=== PATIENT | female | born 1975 | race Caucasian/White ===

== ENCOUNTER 2020-02-20 07:08 | Outpatient (CLI) | payer OTHER, SELFPAY ==
[2020-02-20 07:21] LABS: Basophils Absolute Auto 0.04 K/mm3 (0.00-0.10); Basophils Percent Auto 0.3 % (0.0-1.0); Eosinophils Absolute Auto 0.16 K/mm3 (0.02-0.50); Eosinophils Percent Auto 1.3 % (1.0-6.0); Hematocrit 42.3 % (35.0-49.0); Hemoglobin 13.7 g/dL (12.0-15.0); Immature Granulocyte Absolute 0.06 K/mm3 (0.00-0.00); Immature Granulocyte Percent A 0.5 % (0.0-0.0); Lymphocytes Absolute Auto 3.68 K/mm3 (1.10-4.50); Lymphocytes Percent Auto 30.6 % (18.0-42.0); Mean Corpuscular HGB Conc 32.4 g/dL (32.0-36.0); Mean Corpuscular Volume 92.8 fL (78.0-102.0); Mean Platelet Volume 9.7 fl (9.2-11.8); Monocytes Absolute Auto 0.69 K/mm3 (0.10-0.90); Monocytes Percent Auto 5.7 % (2.0-11.0); Neutrophils Absolute Auto 7.4 K/mm3 (1.7-7.2); Neutrophils Percent Auto 61.6 % (50.0-70.0); Platelet Count Result 387 K/mm3 (150-420); Red Blood Count 4.56 M/mm3 (4.20-5.40); Red Cell Distribution Width 13.6 % (11.6-14.4)
[2020-02-20 07:29] LABS: Creatinine Urine 151.71 mg/dL (40-278)
[2020-02-20 07:36] LABS: MALB Creatinine Ratio 9.4 mg/g (0-30); Microalbumin Urine Random 14.4 mg/L
[2020-02-20 07:38] LABS: Hemoglobin A1C 8.7 % (<5.7)
[2020-02-20 08:07] LABS: Anion Gap 14.5 mmol/L (7-16); Blood Urea Nitrogen 23 mg/dL (7-18); Calcium 8.9 mg/dL (8.5-10.1); Carbon Dioxide 28 mmol/L (21-32); Chloride 99 mmol/L (98-108); Cholesterol 200 mg/dL (0-200); Estimated Glomerular Filt Rate 55; Glucose 214 mg/dL (70-99); HDL Direct 48 mg/dL (40-60); LDL Cholesterol Calculated 114 mg/dL (<130); Osmolality Calculated 293 mOsm/kg (285-295); Potassium 4.5 mmol/L (3.5-5.1); Sodium 137 mmol/L (136-145); Triglycerides 188 mg/dL (0-150)
== END 2020-02-20 07:09 | disposition home or self-care (01) ==
PROVIDERS: PCP Family Medicine; Visit Provider Family Medicine
DX: E78.2 Mixed hyperlipidemia (principal); I10 Essential (primary) hypertension; E11.9 Type 2 diabetes mellitus without complications
CPT/HCPCS: 36415; 80048; 80061; 82043; 83036; 85025

== ENCOUNTER 2020-06-11 08:09 | Outpatient (CLI) | payer OTHER, SELFPAY ==
[2020-06-11 08:20] LABS: Basophils Absolute Auto 0.04 K/mm3 (0.00-0.10); Basophils Percent Auto 0.4 % (0.0-1.0); Eosinophils Absolute Auto 0.16 K/mm3 (0.02-0.50); Eosinophils Percent Auto 1.5 % (1.0-6.0); Hematocrit 40.1 % (35.0-49.0); Immature Granulocyte Absolute 0.06 K/mm3 (0.00-0.00); Immature Granulocyte Percent A 0.6 % (0.0-0.0); Lymphocytes Absolute Auto 2.88 K/mm3 (1.10-4.50); Lymphocytes Percent Auto 26.6 % (18.0-42.0); Mean Corpuscular HGB Conc 32.4 g/dL (32.0-36.0); Mean Corpuscular Hemoglobin 29.1 pg (27.0-31.0); Mean Corpuscular Volume 89.7 fL (78.0-102.0); Mean Platelet Volume 9.9 fl (9.2-11.8); Monocytes Absolute Auto 0.62 K/mm3 (0.10-0.90); Monocytes Percent Auto 5.7 % (2.0-11.0); Neutrophils Absolute Auto 7.1 K/mm3 (1.7-7.2); Neutrophils Percent Auto 65.2 % (50.0-70.0); Platelet Count Result 353 K/mm3 (150-420); Red Blood Count 4.47 M/mm3 (4.20-5.40); Red Cell Distribution Width 13.5 % (11.6-14.4); White Blood Count 10.8 K/mm3 (4.8-10.8)
[2020-06-11 08:29] LABS: Hemoglobin A1C 9.1 % (<5.7)
[2020-06-11 09:12] LABS: Anion Gap 10 mmol/L (8-16); Blood Urea Nitrogen 20 mg/dL (7-18); Carbon Dioxide 26 mmol/L (21-32); Chloride 103 mmol/L (98-108); Cholesterol 163 mg/dL (0-200); Estimated Glomerular Filt Rate > 60; Glucose 221 mg/dL (70-99); HDL Direct 44 mg/dL (40-60); LDL Cholesterol Calculated 78 mg/dL (<130); Osmolality Calculated 297 mOsm/kg (285-295); Potassium 4.5 mmol/L (3.5-5.1); Sodium 139 mmol/L (136-145); Triglycerides 204 mg/dL (0-150)
[2020-06-11 09:50] LABS: HIV 1 P24 AG Negative (Negative); HIV 1/2 AB Negative (Negative)
[2020-06-13 19:11] LABS: RPR Screen Non-Reactive (Non-Reactive)
[2020-06-14 19:18] LABS: Hepatitis A Antibody IgM Nonreactive; Hepatitis B Core Antibody Nonreactive (Nonreactive); Hepatitis B Surface Antigen Nonreactive (Nonreactive); Hepatitis C Signal to Cutoff 0.01 ratio (<1.00); Hepatitis C Virus Antibody Nonreactive (Nonreactive)
== END 2020-06-11 08:10 | disposition home or self-care (01) ==
LOC: CHSLAB 08:11
PROVIDERS: PCP Family Medicine; Visit Provider Obstetrics & Gynecology
DX: Z11.3 Encounter for screening for infections with a predominantly sexual mode of transmission (principal); I10 Essential (primary) hypertension; E11.9 Type 2 diabetes mellitus without complications; E78.2 Mixed hyperlipidemia
CPT/HCPCS: 36415; 80048; 80061; 80074; 83036; 85025; 86592; 86703

== ENCOUNTER 2020-06-13 08:08 | Emergency (ER) | payer OTHER, SELFPAY ==
[2020-06-13 08:15] VITALS: BP 142/77; PULSE 106; RESP 18; TEMP 36.7; O2SAT 98
--- NOTE | 2020-06-13 08:32 | ED.GENADULT ---
HPI - General Adult General Chief complaint: [employer] Stated complaint: possible abcess in pelvic area Source: patient Mode of arrival: ambulatory Limitations: no limitations History of Present Illness HPI narrative: Devora is a 45F with a PMH of HLD, HTN, DMII and chronic back pain that presented to the ED with a lump just lateral to her right labia majora. She noticed it last night and it has become progressively more painful. No fevers, chills, N/V, dysuria or vaginal discharge reported. Related Data Home Medications Medication Instructions Recorded Confirmed atorvastatin 20 mg PO DAILY 06/13/20 06/13/20 bupropion HCl 200 mg PO BID 06/13/20 06/13/20 buspirone 10 mg PO BID 06/13/20 06/13/20 clonidine HCl 0.2 mg PO BID 06/13/20 06/13/20 lisinopril-hydrochlorothiazide 1 tablet PO DAILY 06/13/20 06/13/20 metformin 1,000 mg PO BID 06/13/20 06/13/20 methocarbamol 750 mg PO BID 06/13/20 06/13/20 omeprazole 20 mg PO DAILY 06/13/20 06/13/20 trazodone 300 mg PO HS 06/13/20 06/13/20 Allergies Allergy/AdvReac Type Severity Reaction Status Date / Time haloperidol Allergy Unknown Verified 12/01/15 00:39 lithium Allergy Unknown Verified 12/01/15 00:39 Sulfa (Sulfonamide Allergy Unknown Verified 12/14/12 14:18 Antibiotics) Review of Systems Constitutional: Constitutional: Reports no additional constitutional complaints Eyes: Eyes: Reports no additional eye complaints ENT: Reports system reviewed and no additional complaints, except as documented Cardiovascular: Cardiovascular: Reports no additional cardiovascular complaints Respiratory: Respiratory: Reports no additional respiratory complaints Gastrointestinal: Gastrointestinal: Reports no additional gastrointestinal complaints Genitourinary: Genitourinary: Reports no additional female genitourinary complaints Musculoskeletal: Musculoskeletal: Reports no additional musculoskeletal complaints Integumentary/Breasts: Skin/Breast: Reports as per HPI Neurologic: Reports system reviewed and no additional complaints, except as documented Psychiatric: Psychiatric: Reports no additional psychiatric complaints Endocrine: Endocrine: Reports no additional endocrine complaints Hematologic/Lymphatic: Hematologic/Lymphatic: Reports no additional hematologic/lymphatic complaints Allergic/Immunologic: Allergic/Immunologic: Reports no additional allergic/immunologic complaints PMFSH Family History Family History Father Hypertension Family history of diabetes mellitus in first degree relative Mother Hypertension Family history of diabetes mellitus in first degree relative Social History Social History Smoking status: Never smoker Alcohol intake: current Exam Const: General: no acute distress and alert Orientation/consciousness: patient oriented x3 Limitations: No altered mental status HENMT: Head: normal to inspection Eyes: Conjunctivae: conjunctivae normal Pupils: Equal, round and reactive pupils present Neck: Neck: normal visual inspection Chest: Chest palpation & inspection: normal inspection of the chest Resp: Effort & Inspection: normal respiratory effort Cardio: Rate: regular rate GI: Inspection: non-distended GI Palp: Yes Soft to palpation, No Tenderness to palpation present (GI) and No Guarding due to palpation present (GI) : External Female Exam: normal external appearance Speculum Exam - Vagina: normal appearance of the vagina Skin: Other: dime sized abscess with overlying erythema and was TTP just lateral to the right labia majora. Neuro: General: patient oriented x3 and moves all extremities Extrem: General: normal to inspection Psych: Mental Status: mental status grossly normal Procedures Abscess I/D other: Date of Incision: 06/13/20 Time of Incision: 08:25 Side (if applicable): right Se
[2020-06-13 08:53] VITALS: BP 134/85; PULSE 100; RESP 20; TEMP 36.7; O2SAT 98
[2020-06-13] MEDS: LIDO 1%/EPINEPHRINE 1:100,000 20 ML VIAL (08:54)
== END 2020-06-13 08:54 | disposition home or self-care (01) ==
PROVIDERS: Emergency Provider Family Medicine; PCP Family Medicine
DX: L02.214 Cutaneous abscess of groin (principal)
CPT/HCPCS: 10060; 99283

== ENCOUNTER 2020-07-28 19:39 | Emergency (ER) | payer OTHER, SELFPAY ==
--- NOTE | 2020-07-28 19:48 | ED.SKABFB ---
HPI - Skin/Abscess/Foreign Bdy General Chief complaint: Skin/Abscess/Foreign Body Stated complaint: three circles on leg, bump on arm-causing pain Source: patient and RN notes reviewed Mode of arrival: ambulatory Limitations: no limitations History of Present Illness HPI narrative: patient states she has had this rash on her left upper thigh for about 2 weeks. And a lump in her subcutaneous tissue her left upper outer arm. complaint: rash and lesion (arm) Location: LUE (Upper arm) and LLE (Upper thigh) Quality: pruritic Relieving factors: none Exacerbating factors: none Context: none Associated symptoms: denies other symptoms Treatments prior to arrival: none Related Data Home Medications Medication Instructions Recorded Confirmed atorvastatin 20 mg PO DAILY 06/13/20 06/13/20 bupropion HCl 200 mg PO BID 06/13/20 06/13/20 buspirone 10 mg PO BID 06/13/20 06/13/20 clonidine HCl 0.2 mg PO BID 06/13/20 06/13/20 lisinopril-hydrochlorothiazide 1 tablet PO DAILY 06/13/20 06/13/20 metformin 1,000 mg PO BID 06/13/20 06/13/20 methocarbamol 750 mg PO BID 06/13/20 06/13/20 omeprazole 20 mg PO DAILY 06/13/20 06/13/20 trazodone 300 mg PO HS 06/13/20 06/13/20 Allergies Allergy/AdvReac Type Severity Reaction Status Date / Time haloperidol Allergy Unknown Unknown Verified 07/28/20 20:01 lithium Allergy Unknown Unknown Verified 07/28/20 20:01 Sulfa (Sulfonamide Allergy Unknown Hives Verified 07/28/20 20:01 Antibiotics) divalproex sodium Allergy Unknown Verified 07/28/20 20:01 [From Depakote] Review of Systems Review of Systems: All systems reviewed & are unremarkable except as noted in HPI and below PMFSH Past Medical History Medical History (Updated 07/28/20 @ 20:01 by Adilson Paul MD) Hyperlipidemia Hypertension Morbid obesity Type 2 diabetes mellitus Surgical History Surgical History (Updated 07/28/20 @ 20:01 by Adilson Paul MD) History of section x3 Family History Family History Father Hypertension Family history of diabetes mellitus in first degree relative Mother Hypertension Family history of diabetes mellitus in first degree relative Social History Social History Smoking status: Never smoker Alcohol intake: current Gender identity (if verbalized by the patient): Female Exam Const: General: healthy appearing and no acute distress Nutritional Appearance: obese morbidly obese Orientation/consciousness: patient oriented x3 Other: female nurse in room during examination. HENMT: Head: normal to inspection Ears: external ears normal Eyes: Conjunctivae: conjunctivae normal Pupils: Equal, round and reactive pupils present EOM: EOMs intact bilaterally Neck: Neck: normal visual inspection Resp: Effort & Inspection: normal respiratory effort Auscultation: clear to auscultation bilaterally Cardio: Rate: regular rate Rhythm: regular rhythm GI: Auscultation: normal bowel sounds Back/Spine/Pelvis: Cervical Spine: cervical ROM normal Thoracic/Lumbar Spine: thoraco-lumbar ROM normal Skin: Lesions: lesion noted cyst left upper arm size (2 cm), borders well-defined and smooth, consistency firm and mobile, morphology and other ( Subcutaneous) Rashes: rashes noted ( annular lesions with heaped up borders and central clearing) patches left upper leg Neuro: General: patient oriented x3, moves all extremities and no focal motor deficits Speech: normal speech Gait exam (Neuro): Normal gait present Extrem: General: normal to inspection and no pedal edema Psych: Appearance: grossly normal and well kempt Mental Status: mental status grossly normal Affect: normal affect Attitude: cooperative Thought content: Yes Normal thought content present Discharge Plan Discharge Clinical Impression: Ringworm, Benign cyst of skin Patient Disposition: Home, Self-Care
[2020-07-28 19:55] VITALS: BP 111/96; PULSE 97; RESP 20; TEMP 36.6; O2SAT 97
[2020-07-28 20:10] VITALS: PULSE 88; RESP 20; O2SAT 99
== END 2020-07-28 20:10 | disposition home or self-care (01) ==
PROVIDERS: Emergency Provider Emergency Medicine; PCP Family Medicine
DX: B35.9 Dermatophytosis, unspecified (principal); L72.9 Follicular cyst of the skin and subcutaneous tissue, unspecified
CPT/HCPCS: 99283

== ENCOUNTER 2020-09-29 19:24 | Emergency (ER) | payer OTHER, SELFPAY ==
[2020-09-29 19:40] VITALS: BP 130/89; PULSE 97; RESP 20; TEMP 36.6; O2SAT 98
--- NOTE | 2020-09-29 20:05 | ED.SKABFB ---
HPI - Skin/Abscess/Foreign Bdy General Chief complaint: Skin/Abscess/Foreign Body Stated complaint: ring worm Time Seen by Provider: 09/29/20 20:05 Source: patient Mode of arrival: ambulatory Limitations: no limitations History of Present Illness HPI narrative: Patient comes in thinking she has ringworm on left upper arm, and on left thigh. complaint: rash Onset (ago): month(s) Severity: mild Severity scale (1-10): 2 Quality: pruritic Pain Consistency: intermittent Relieving factors: cold therapy and topical medication Context: other (treated in past for ringworm) Associated symptoms: denies other symptoms Treatments prior to arrival: other (antifungal cream) Related Data Home Medications Medication Instructions Recorded Confirmed atorvastatin 20 mg PO DAILY 06/13/20 09/29/20 bupropion HCl 200 mg PO BID 06/13/20 09/29/20 buspirone 10 mg PO BID 06/13/20 09/29/20 clonidine HCl 0.2 mg PO BID 06/13/20 09/29/20 lisinopril-hydrochlorothiazide 1 tablet PO DAILY 06/13/20 09/29/20 metformin 1,000 mg PO BID 06/13/20 09/29/20 methocarbamol 750 mg PO BID 06/13/20 09/29/20 omeprazole 20 mg PO DAILY 06/13/20 09/29/20 trazodone 300 mg PO HS 06/13/20 09/29/20 Allergies Allergy/AdvReac Type Severity Reaction Status Date / Time haloperidol Allergy Unknown Unknown Verified 07/28/20 20:01 lithium Allergy Unknown Unknown Verified 07/28/20 20:01 Sulfa (Sulfonamide Allergy Unknown Hives Verified 07/28/20 20:01 Antibiotics) divalproex sodium Allergy Unknown Verified 07/28/20 20:01 [From Depakote] Review of Systems Constitutional: Constitutional: Reports no additional constitutional complaints Eyes: Eyes: Reports no additional eye complaints ENT: Reports system reviewed and no additional complaints, except as documented Cardiovascular: Cardiovascular: Reports no additional cardiovascular complaints Respiratory: Respiratory: Reports no additional respiratory complaints Gastrointestinal: Gastrointestinal: Reports no additional gastrointestinal complaints Genitourinary: Genitourinary: Reports no additional female genitourinary complaints Musculoskeletal: Comments: complains of itching at sites she thinks she has ringworm at Integumentary/Breasts: Skin/Breast: Reports system reviewed and no additional complaints, except as docu Neurologic: Reports system reviewed and no additional complaints, except as documented Psychiatric: Psychiatric: Reports no additional psychiatric complaints Endocrine: Endocrine: Reports no additional endocrine complaints Hematologic/Lymphatic: Hematologic/Lymphatic: Reports no additional hematologic/lymphatic complaints Allergic/Immunologic: Allergic/Immunologic: Reports no additional allergic/immunologic complaints PMFSH Past Medical History Medical History Hyperlipidemia Hypertension Morbid obesity Type 2 diabetes mellitus Surgical History Surgical History History of section x3 Family History Family History Father Hypertension Family history of diabetes mellitus in first degree relative Mother Hypertension Family history of diabetes mellitus in first degree relative Social History Social History Smoking status: Never smoker Alcohol intake: current Gender identity (if verbalized by the patient): Female Exam Const: General: no acute distress Orientation/consciousness: patient oriented x3 HENMT: Head: normal to inspection Ears: external ears normal Face and sinus: normal facial exam Mouth: Yes Normal oral and palatal mucosa present and Yes moist mucous membranes Eyes: Conjunctivae: conjunctivae normal Neck: Neck: normal visual inspection and no lymphadenopathy Chest: Chest palpation & inspection: normal inspection of the chest Resp: Effort & In
[2020-09-29 20:16] VITALS: BP 134/87; PULSE 87; RESP 20; O2SAT 97
== END 2020-09-29 20:17 | disposition home or self-care (01) ==
PROVIDERS: Emergency Provider Emergency Medicine; PCP Family Medicine
DX: B35.9 Dermatophytosis, unspecified (principal)
CPT/HCPCS: 99283

== ENCOUNTER 2021-06-02 15:32 | Emergency (ER) | payer OTHER, SELFPAY ==
[2021-06-02 15:47] VITALS: BP 132/75; PULSE 105; RESP 18; TEMP 36.8; O2SAT 97
--- NOTE | 2021-06-02 16:08 | ED.SKABFB ---
HPI - Skin/Abscess/Foreign Bdy General Chief complaint: Skin/Abscess/Foreign Body Stated complaint: boil on R side of Groin Source: patient Mode of arrival: ambulatory Limitations: no limitations History of Present Illness HPI narrative: Boil Wound in groin area. hx of boils before. complaint: abscess/boil Onset (ago): day(s) Location: genitals Severity: mild Pain Consistency: constant Relieving factors: none Exacerbating factors: none Associated symptoms: denies other symptoms Treatments prior to arrival: none Related Data Home Medications Medication Instructions Recorded Confirmed atorvastatin 20 mg PO DAILY 06/13/20 09/29/20 bupropion HCl 200 mg PO BID 06/13/20 09/29/20 buspirone 10 mg PO BID 06/13/20 09/29/20 clonidine HCl 0.2 mg PO BID 06/13/20 09/29/20 lisinopril-hydrochlorothiazide 1 tablet PO DAILY 06/13/20 09/29/20 metformin 1,000 mg PO BID 06/13/20 09/29/20 methocarbamol 750 mg PO BID 06/13/20 09/29/20 omeprazole 20 mg PO DAILY 06/13/20 09/29/20 trazodone 300 mg PO HS 06/13/20 09/29/20 Allergies Allergy/AdvReac Type Severity Reaction Status Date / Time haloperidol Allergy Unknown Unknown Verified 07/28/20 20:01 lithium Allergy Unknown Unknown Verified 07/28/20 20:01 Sulfa (Sulfonamide Allergy Unknown Hives Verified 07/28/20 20:01 Antibiotics) divalproex sodium Allergy Unknown Verified 07/28/20 20:01 [From Depakote] Review of Systems Review of Systems: All systems reviewed & are unremarkable except as noted in HPI and below Constitutional: Constitutional: Reports no additional constitutional complaints Eyes: Eyes: Reports no additional eye complaints ENT: Reports system reviewed and no additional complaints, except as documented Cardiovascular: Cardiovascular: Reports no additional cardiovascular complaints Gastrointestinal: Gastrointestinal: Reports no additional gastrointestinal complaints Genitourinary: Genitourinary: Reports no additional female genitourinary complaints Musculoskeletal: Musculoskeletal: Reports no additional musculoskeletal complaints Integumentary/Breasts: Skin/Breast: Reports system reviewed and no additional complaints, except as docu Neurologic: Reports system reviewed and no additional complaints, except as documented Psychiatric: Psychiatric: Reports no additional psychiatric complaints Endocrine: Endocrine: Reports no additional endocrine complaints Hematologic/Lymphatic: Hematologic/Lymphatic: Reports no additional hematologic/lymphatic complaints Allergic/Immunologic: Allergic/Immunologic: Reports no additional allergic/immunologic complaints PMFSH Past Medical History Medical History Hyperlipidemia Hypertension Morbid obesity Type 2 diabetes mellitus Surgical History Surgical History History of section x3 Family History Family History Father Hypertension Family history of diabetes mellitus in first degree relative Mother Hypertension Family history of diabetes mellitus in first degree relative Social History Social History Smoking status: Never smoker Alcohol intake: current Gender identity (if verbalized by the patient): Female Exam Const: General: no acute distress Nutritional Appearance: well nourished Orientation/consciousness: patient oriented x3 HENMT: Head: normal to inspection Eyes: Pupils: Equal, round and reactive pupils present Neck: Neck: normal visual inspection Chest: Chest palpation & inspection: normal inspection of the chest Resp: Effort & Inspection: normal respiratory effort Skin: General skin exam: normal color Rashes: no rashes Neuro: General: patient oriented x3 and moves all extremities Extrem: General: normal to inspection Psych: Appe
--- NOTE | 2021-06-02 16:08 | PC.NURSE ---
Accompanied Dr. Michaels with I&D.
== END 2021-06-02 16:30 | disposition home or self-care (01) ==
PROVIDERS: Emergency Provider Emergency Medicine; PCP Family Medicine
DX: L02.214 Cutaneous abscess of groin (principal)
CPT/HCPCS: 10060; 87070; 87205; 99282; 99283

== ENCOUNTER 2021-06-02 16:35 | Outpatient (CLI) | payer OTHER, SELFPAY ==
--- NOTE | ~2021-06-02 | XR_ITS ---
EXAMINATION: XR shoulder LT min 2V, XR humerus LT DATE: 06/02/2021 17:01 INDICATION: Left shoulder and arm pain with limited movement TECHNIQUE: 1. AP internally and externally rotated, AP oblique externally rotated and transscapular Y views of t he affected shoulder were obtained. 2. Internal and externally rotated views of the left upper arm were obtained. COMPARISON: None FINDINGS: Normal alignment. No fracture. Glenohumeral, acromioclavicular and elbow joint spaces appear normal. Soft tissues are unremarkable. IMPRESSION: Negative left shoulder and humerus radiographs. Reviewed, dictated and finalized at location B. IMPRESSION: Negative left shoulder and humerus radiographs.
== END 2021-06-02 16:36 | disposition home or self-care (01) ==
LOC: CHSIMG 16:36
PROVIDERS: PCP Family Medicine; Visit Provider Family Medicine
DX: M79.622 Pain in left upper arm (principal)
CPT/HCPCS: 73030; 73060

== ENCOUNTER 2021-06-17 12:53 | Emergency (ER) | payer OTHER, SELFPAY ==
[2021-06-17 13:00] VITALS: BP 127/98; PULSE 99; RESP 20; TEMP 36.1; O2SAT 96
--- NOTE | 2021-06-17 13:19 | ED.SKABFB ---
HPI - Skin/Abscess/Foreign Bdy General Chief complaint: Skin/Abscess/Foreign Body Stated complaint: abscess on Groin Source: patient Mode of arrival: ambulatory Limitations: no limitations History of Present Illness HPI narrative: this is a 46-year-old female morbidly obese with history of diabetes insulin dependent that presents with abscess on the right suprapubic area currently is non fluctuant with some minimal drainage is warm and tender to touch with no fever chills, the patient had this area lanced and drained and not started on antibiotics at that time. Patient did see her primary care physician currently on doxycycline and with minimal relief. complaint: abscess/boil Onset (ago): week(s) Location: genitals Severity: moderate Related Data Home Medications Medication Instructions Recorded Confirmed atorvastatin 20 mg PO DAILY 06/13/20 06/17/21 bupropion HCl 200 mg PO BID 06/13/20 06/17/21 buspirone 10 mg PO BID 06/13/20 06/17/21 clonidine HCl 0.2 mg PO BID 06/13/20 06/17/21 lisinopril-hydrochlorothiazide 1 tablet PO DAILY 06/13/20 06/17/21 metformin 1,000 mg PO BID 06/13/20 06/17/21 methocarbamol 750 mg PO BID 06/13/20 06/17/21 omeprazole 20 mg PO DAILY 06/13/20 06/17/21 trazodone 300 mg PO HS 06/13/20 06/17/21 doxycycline monohydrate 100 mg PO BID 06/17/21 06/17/21 Allergies Allergy/AdvReac Type Severity Reaction Status Date / Time haloperidol Allergy Unknown Unknown Verified 06/02/21 16:29 lithium Allergy Unknown Unknown Verified 06/02/21 16:29 Sulfa (Sulfonamide Allergy Unknown Hives Verified 06/02/21 16:29 Antibiotics) divalproex sodium Allergy Unknown Verified 06/02/21 16:29 [From [facility]] Review of Systems Review of Systems: All systems reviewed & are unremarkable except as noted in HPI and below PMFSH Past Medical History Medical History Hyperlipidemia Hypertension Morbid obesity Type 2 diabetes mellitus Surgical History Surgical History History of section x3 Family History Family History Father Hypertension Family history of diabetes mellitus in first degree relative Mother Hypertension Family history of diabetes mellitus in first degree relative Social History Social History Smoking status: Never smoker Alcohol intake: current Gender identity (if verbalized by the patient): Female Exam Const: General: no acute distress Orientation/consciousness: patient oriented x3 HENMT: Head: normal to inspection Eyes: Conjunctivae: conjunctivae normal Pupils: Equal, round and reactive pupils present EOM: EOMs intact bilaterally Neck: Neck: normal visual inspection, no lymphadenopathy and no meningeal signs Chest: Chest palpation & inspection: normal inspection of the chest Resp: Effort & Inspection: normal respiratory effort Auscultation: clear to auscultation bilaterally Cardio: Rate: regular rate Rhythm: regular rhythm GI: GI Palp: Yes Soft to palpation Percussion: Yes normal to percussion : General: Yes no CVA tenderness Other: nonfluctuant abscess with minimal drainage on the right suprapubic area approximately 3cm in diameter warm and tender to touch. Back/Spine/Pelvis: Back: no CVA tenderness Skin: General skin exam: normal color Rashes: no rashes Wounds: wounds noted Extrem: General: normal to inspection and no pedal edema Psych: Mental Status: mental status grossly normal Course Course Emergency Course: Patient to receive 1g IM ceftriaxone advised patient to use some naproxen warm compress and take antibiotics as prescribed. Critical Care Time Critical Care Time Critical Care Time: No Discharge Plan Discharge Clinical Impression: Abscess of skin or subcutaneous tissue Qualifiers: Site of cutaneous
[2021-06-17] MEDS: LIDOCAINE HCL 1% LOCAL INJ 20 ML VIAL (13:25)
[2021-06-17] MEDS: cefTRIAXone 1 GM VIAL IM (13:25)
[2021-06-17 14:00] VITALS: BP 133/92; PULSE 100; RESP 20; O2SAT 96
== END 2021-06-17 14:00 | disposition home or self-care (01) ==
PROVIDERS: Emergency Provider Emergency Medicine; PCP Family Medicine
DX: L02.818 Cutaneous abscess of other sites (principal); E78.5 Hyperlipidemia, unspecified; I10 Essential (primary) hypertension; E11.9 Type 2 diabetes mellitus without complications
CPT/HCPCS: 96372; 99283; J0696

== ENCOUNTER 2021-07-18 13:31 | Emergency (ER) | payer OTHER, SELFPAY ==
--- NOTE | 2021-07-18 13:34 | ED.SKABFB ---
HPI - Skin/Abscess/Foreign Bdy General Chief complaint: Skin/Abscess/Foreign Body Stated complaint: boils Source: patient and RN notes reviewed Mode of arrival: ambulatory Limitations: no limitations History of Present Illness complaint: abscess/boil Onset (ago): day(s) (1) Location: genitals (right groin) Severity: mild Quality: burning and dull Pain Consistency: constant Relieving factors: none Exacerbating factors: none Associated symptoms: denies other symptoms Treatments prior to arrival: none Related Data Home Medications Medication Instructions Recorded Confirmed atorvastatin 20 mg PO DAILY 06/13/20 06/17/21 bupropion HCl 200 mg PO BID 06/13/20 06/17/21 buspirone 10 mg PO BID 06/13/20 06/17/21 clonidine HCl 0.2 mg PO BID 06/13/20 06/17/21 lisinopril-hydrochlorothiazide 1 tablet PO DAILY 06/13/20 06/17/21 metformin 1,000 mg PO BID 06/13/20 06/17/21 methocarbamol 750 mg PO BID 06/13/20 06/17/21 omeprazole 20 mg PO DAILY 06/13/20 06/17/21 trazodone 300 mg PO HS 06/13/20 06/17/21 Allergies Allergy/AdvReac Type Severity Reaction Status Date / Time haloperidol Allergy Unknown Unknown Verified 06/02/21 16:29 lithium Allergy Unknown Unknown Verified 06/02/21 16:29 Sulfa (Sulfonamide Allergy Unknown Hives Verified 06/02/21 16:29 Antibiotics) divalproex sodium Allergy Unknown Verified 06/02/21 16:29 [From [facility]] Review of Systems Review of Systems: All systems reviewed & are unremarkable except as noted in HPI and below PMFSH Past Medical History Medical History Hyperlipidemia Hypertension Morbid obesity Type 2 diabetes mellitus Surgical History Surgical History History of section x3 Family History Family History Father Hypertension Family history of diabetes mellitus in first degree relative Mother Hypertension Family history of diabetes mellitus in first degree relative Social History Social History Smoking status: Never smoker Alcohol intake: current Gender identity (if verbalized by the patient): Female Exam Const: General: no acute distress and alert Nutritional Appearance: well nourished and obese morbidly obese Orientation/consciousness: patient oriented x3 Other: Female nurse in room during examination. HENMT: Head: normal to inspection Ears: external ears normal Eyes: Conjunctivae: conjunctivae normal Pupils: Equal, round and reactive pupils present EOM: EOMs intact bilaterally Neck: Neck: normal visual inspection Resp: Effort & Inspection: normal respiratory effort Auscultation: clear to auscultation bilaterally Cardio: Rate: regular rate Rhythm: regular rhythm GI: GI Palp: Yes Soft to palpation Auscultation: normal bowel sounds Back/Spine/Pelvis: Cervical Spine: cervical ROM normal Thoracic/Lumbar Spine: thoraco-lumbar ROM normal Skin: General skin exam: normal color Lesions: lesion noted right groin size (2 cm), consistency soft, fluctuant and mobile and tender Neuro: General: patient oriented x3, moves all extremities, no meningeal signs and no focal motor deficits Speech: normal speech Gait exam (Neuro): Normal gait present Extrem: General: normal to inspection and no clubbing, cyanosis or edema Psych: Appearance: grossly normal and well kempt Mental Status: mental status grossly normal Affect: normal affect Thought content: Yes Normal thought content present Procedures Abscess I/D Right Groin: Date of Incision: 07/18/21 Side (if applicable): right (Groin) Technique: needle aspiration Amount of fluid expressed (mL): 2 Packing used?: none I&D Results: Pus and Blood Discharge Plan Discharge Clinical Impression: Abscess of skin or subcutaneous tissue Qualifiers: Site of
[2021-07-18 13:35] VITALS: BP 126/86; PULSE 109; RESP 20; TEMP 36.4; O2SAT 97
[2021-07-18 13:55] VITALS: BP 126/86; PULSE 109; RESP 20; TEMP 36.4; O2SAT 97
== END 2021-07-18 14:00 | disposition home or self-care (01) ==
PROVIDERS: Emergency Provider Emergency Medicine; PCP Family Medicine
DX: L02.214 Cutaneous abscess of groin (principal)
CPT/HCPCS: 10160; 99282

== ENCOUNTER 2021-07-24 22:42 | Emergency (ER) | payer OTHER, SELFPAY ==
[2021-07-24 22:54] VITALS: BP 114/68; PULSE 124; RESP 18; TEMP 36.7; O2SAT 97
--- NOTE | 2021-07-24 23:03 | ED.GENADULT ---
HPI - General Adult General Chief complaint: Wound/Laceration Stated complaint: boil on groin Source: patient Mode of arrival: ambulatory Limitations: no limitations History of Present Illness HPI narrative: Devora is a 46F with a PMH of DMII, HLD and HTN that presented to the ER with a boil in her right groin. She gets them frequently. She had one here a few weeks ago that was treated with antibiotics and an I&D. However, over the last few days she has had a painful, erythematous tender nodule in her right groin. No fevers, chills, N/V or drainage reported. Related Data Home Medications Medication Instructions Recorded Confirmed atorvastatin 20 mg PO DAILY 06/13/20 07/24/21 clonidine HCl 0.2 mg PO BID 06/13/20 07/24/21 metformin 1,000 mg PO BID 06/13/20 07/24/21 empagliflozin [Jardiance] 10 mg PO DAILY 07/24/21 07/25/21 Allergies Allergy/AdvReac Type Severity Reaction Status Date / Time divalproex sodium Allergy Severe Hives Verified 07/24/21 23:58 [From Depakote] haloperidol Allergy Unknown Unknown Verified 07/24/21 22:54 lithium Allergy Unknown Unknown Verified 07/24/21 22:54 Sulfa (Sulfonamide Allergy Unknown Hives Verified 07/24/21 22:54 Antibiotics) Review of Systems Constitutional: Constitutional: Reports no additional constitutional complaints, Denies chills, Denies fatigue, Denies fever(s) and Denies weakness Eyes: Eyes: Reports no additional eye complaints ENT: Reports system reviewed and no additional complaints, except as documented Cardiovascular: Cardiovascular: Reports no additional cardiovascular complaints Respiratory: Respiratory: Reports no additional respiratory complaints Gastrointestinal: Gastrointestinal: Reports no additional gastrointestinal complaints Genitourinary: Genitourinary: Reports no additional female genitourinary complaints Musculoskeletal: Musculoskeletal: Reports no additional musculoskeletal complaints Integumentary/Breasts: Skin/Breast: Reports as per HPI Neurologic: Reports system reviewed and no additional complaints, except as documented Psychiatric: Psychiatric: Reports no additional psychiatric complaints Endocrine: Endocrine: Reports no additional endocrine complaints Hematologic/Lymphatic: Hematologic/Lymphatic: Reports no additional hematologic/lymphatic complaints Allergic/Immunologic: Allergic/Immunologic: Reports no additional allergic/immunologic complaints [facility] Past Medical History Medical History Hyperlipidemia Hypertension Morbid obesity Type 2 diabetes mellitus Surgical History Surgical History History of section x3 Family History Family History Father Hypertension Family history of diabetes mellitus in first degree relative Mother Hypertension Family history of diabetes mellitus in first degree relative Social History Social History Smoking status: Never smoker Alcohol intake: current Gender identity (if verbalized by the patient): Female Exam Const: General: no acute distress and alert Orientation/consciousness: patient oriented x3 Limitations: No altered mental status HENMT: Head: normal to inspection Other: normocephalic, atraumatic Eyes: Conjunctivae: conjunctivae normal Pupils: Equal, round and reactive pupils present Neck: Neck: normal visual inspection Resp: Effort & Inspection: normal respiratory effort, not labored and not tachypneic Cardio: Rate: regular rate GI: Inspection: non-distended GI Palp: Yes Soft to palpation, No Tenderness to palpation present (GI) and No Guarding due to palpation present (GI) Skin: Other: Half dollar sized erythematous round tender nodule with fluctuance Neuro: General: patient oriented x3, moves all extremities and CN's I
[2021-07-24] MEDS: LIDO 1%/EPINEPHRINE 1:100,000 20 ML VIAL 5 ML INFILTRATE (23:42)
[2021-07-24] MEDS: CLINDAMYCIN HCL 150 MG CAP 450 MG PO (23:55)
[2021-07-25 00:11] VITALS: BP 106/58; PULSE 114; RESP 18; O2SAT 98
== END 2021-07-25 00:15 | disposition home or self-care (01) ==
PROVIDERS: Emergency Provider Family Medicine; PCP Family Medicine
DX: L02.214 Cutaneous abscess of groin (principal)
CPT/HCPCS: 10060; 99283; A9270

== ENCOUNTER 2021-11-28 12:53 | Emergency (ER) | payer OTHER, SELFPAY ==
[2021-11-28 13:04] VITALS: BP 123/77; PULSE 110; RESP 20; TEMP 36.4; O2SAT 99
--- NOTE | 2021-11-28 13:45 | ED.DENTAL ---
HPI - Dental/Oral General Chief complaint: Dental/Oral Stated complaint: toothache Time Seen by Provider: 11/28/21 13:28 Source: patient Mode of arrival: ambulatory Limitations: no limitations History of Present Illness HPI Narrative: We 6-year-old female presents secondary to dental pain of the right upper posterior aspect. Is been warm for about a week and a half. She has an appointment see a dentist but cannot get into see 1 for another week and half to 2 weeks. She states the pain has not been adequately controlled at home with just [id number] medications. Denies any chills or fevers. She does have underlying history of diabetes. Blood sugars been adequately controlled lately. It hurts when she tries to chew. She does have a history of dental caries in the past. She is even had dental abscesses in the past. Related Data Home Medications Medication Instructions Recorded Confirmed atorvastatin 20 mg PO DAILY 06/13/20 07/24/21 clonidine HCl 0.2 mg PO BID 06/13/20 07/24/21 metformin 1,000 mg PO BID 06/13/20 07/24/21 empagliflozin [Jardiance] 10 mg PO DAILY 07/24/21 07/25/21 blood sugar diagnostic [OneTouch 11/28/21 11/28/21 Ultra Test] lancets [OneTouch Delica Plus 11/28/21 11/28/21 Lancet] liraglutide [Victoza 2-Oswald] mg SUBCUT 11/28/21 lisinopril-hydrochlorothiazide tablet 11/28/21 pen needle, diabetic [Novofine 32] 11/28/21 11/28/21 Allergies Allergy/AdvReac Type Severity Reaction Status Date / Time divalproex sodium Allergy Severe Hives Verified 11/28/21 13:06 [From Depakote] haloperidol Allergy Unknown Unknown Verified 11/28/21 13:06 lithium Allergy Unknown Unknown Verified 11/28/21 13:06 Sulfa (Sulfonamide Allergy Unknown Hives Verified 11/28/21 13:06 Antibiotics) Review of Systems Review of Systems: CONSTITUTIONAL: Denies fever, chills, or sweats. EYES: Denies visual changes, redness, or discharge. ENT: Denies rhinorrhea, congestion, sore throat, or otalgia. CARDIOVASCULAR: Denies chest pain, palpitations, or edema. RESPIRATORY: Denies cough or dyspnea. GASTROINTESTINAL: Denies abdominal pain, nausea, vomiting, or diarrhea. GENITOURINARY: Denies dysuria or hematuria. SKIN: Denies rash or itching. MUSCULOSKELETAL: Denies back pain, joint pain, or myalgia. NEUROLOGIC: Denies headache, numbness, or weakness. PSYCHIATRIC: Denies anxiety or depression. PMFSH Past Medical History Medical History Hyperlipidemia Hypertension Morbid obesity Type 2 diabetes mellitus Surgical History Surgical History History of section x3 Family History Family History Father Hypertension Family history of diabetes mellitus in first degree relative Mother Hypertension Family history of diabetes mellitus in first degree relative Social History Social History Smoking status: Never smoker Alcohol intake: current Gender identity (if verbalized by the patient): Female Exam Narrative: APPEARANCE: Well appearing, no pain in distress, well-nourished. Patient is obese Head normocephalic atraumtaic. EYES: PERRLA/EOMI, conjunctivae very clear. NOSE: Normal no drainage EARS:TMS clear Princess Shipley, with good light reflex. THROAT: Pharynx clear, no exudate. Tenderness to palpation in the right upper second molar. No obvious dental caries. Not has some tenderness to palpation in the gums as well as to the right cheek. NECK: Supple. No adenopathy, no masses. RESPIRATORY: Airway patent, repsirations nonlabored. Clear to auscultation bilaterally, no rales, rhonchi, wheezing. CARDIOVASCULAR: Regular rate and rhythm without murmurs rubs or gallops. ABDOMINAL: Soft, nontender, nondistended, no hepatosplenomegally MUSCULOSKELETAl: Moves all extremities. Strenght/ROM intact, No edema,
== END 2021-11-28 14:04 | disposition home or self-care (01) ==
PROVIDERS: Emergency Provider Emergency Medicine; PCP Family Medicine
DX: K04.01 Reversible pulpitis (principal); E78.5 Hyperlipidemia, unspecified; I10 Essential (primary) hypertension; E11.9 Type 2 diabetes mellitus without complications; Z79.84 Long term (current) use of oral hypoglycemic drugs; E66.01 Morbid (severe) obesity due to excess calories; Z68.43 Body mass index [BMI] 50.0-59.9, adult
CPT/HCPCS: 99283

== ENCOUNTER 2022-05-11 13:16 | Outpatient (CLI) | payer OTHER, SELFPAY ==
--- NOTE | ~2022-05-11 | MM_ITS ---
EXAMINATION: MM screening kadeem BI w [facility] HISTORY: Screening mammogram TECHNIQUE: Craniocaudal and mediolateral oblique 3-D tomosynthesis images were obtained and synthetic 2-D images were generated. CAD analysis was submitted and interpreted. COMPARISON: No prior mammogram is available for comparison at this institution. BREAST PARENCHYMAL COMPOSITION: The breasts are almost entirely fatty. FINDINGS: There is no evidence of suspicious mass, calcification, or architectural distortion to sugg est malignancy in either breast. There has been no suspicious interval change. IMPRESSION: 1. No mammographic evidence of malignancy. 2. Recommend routine screening mammography in one year. BI-RADS Category 1: Negative Reviewed, dictated and finalized at location A.
[2022-05-11 14:41] LABS: HIV 1 P24 AG Negative (Negative); HIV 1/2 AB Negative (Negative)
[2022-05-13 18:53] LABS: RPR Screen Non-Reactive (Non-Reactive)
[2022-05-14 18:00] LABS: Hepatitis B Surface Antigen Nonreactive (Nonreactive); Hepatitis C Virus Antibody Nonreactive (Nonreactive)
== END 2022-05-11 13:17 | disposition home or self-care (01) ==
LOC: CHSIMG 13:18
PROVIDERS: PCP Family Medicine; Visit Provider Obstetrics & Gynecology
DX: A64 Unspecified sexually transmitted disease (principal); Z12.31 Encounter for screening mammogram for malignant neoplasm of breast
CPT/HCPCS: 36415; 77063; 77067; 86592; 86703

== ENCOUNTER 2022-06-19 10:31 | Emergency (ER) | payer OTHER, SELFPAY ==
[2022-06-19 10:40] VITALS: BP 114/79; PULSE 101; RESP 18; TEMP 36.2; O2SAT 97
--- NOTE | 2022-06-19 11:30 | ED.SKABFB ---
HPI - Skin/Abscess/Foreign Bdy General Chief complaint: Skin/Abscess/Foreign Body Stated complaint: Boil on right side Source: patient Mode of arrival: ambulatory Limitations: no limitations History of Present Illness HPI narrative: Patient is a 47-year-old white female obese complains of right groin mass about the size of half of a lopez and a smaller 1 about size of a pea her right groin area. She gets these quite frequently sometimes they Maciej them but usually they give her antibiotics for these either Augmentin or doxycycline Related Data Home Medications Medication Instructions Recorded Confirmed atorvastatin 20 mg tablet 20 mg PO DAILY 06/13/20 06/19/22 clonidine HCl 0.2 mg tablet 0.2 mg PO BID 06/13/20 06/19/22 metformin 1,000 mg tablet 1,000 mg PO BID 06/13/20 06/19/22 empagliflozin 10 mg tablet 10 mg PO DAILY 07/24/21 06/19/22 (Jardiance) blood sugar diagnostic ([employer] 11/28/21 04/27/22 Ultra Test strips) lancets 33 gauge ([employer] Delica 11/28/21 04/27/22 Plus Lancet) liraglutide 0.6 mg/0.1 mL (18 mg/3 0.6 mg subcut WEEKLY 11/28/21 06/19/22 mL) subcutaneous pen injector (Care [employer]za 2-Oswald) lisinopril 10 1 tablet PO DAILY 11/28/21 06/19/22 mg-hydrochlorothiazide 12.5 mg tablet pen needle, diabetic 32 gauge x 11/28/21 11/28/21 1/ (Novofine 32) Allergies Allergy/AdvReac Type Severity Reaction Status Date / Time divalproex sodium Allergy Severe Hives Verified 06/19/22 10:53 [From Depakote] haloperidol Allergy Unknown Unknown Verified 06/19/22 10:53 lithium Allergy Unknown Unknown Verified 06/19/22 10:53 Sulfa (Sulfonamide Allergy Unknown Hives Verified 06/19/22 10:53 Antibiotics) Review of Systems Review of Systems: All systems reviewed & are unremarkable except as noted in HPI and below Constitutional: Constitutional: Reports no additional constitutional complaints Eyes: Eyes: Reports no additional eye complaints ENT: Reports system reviewed and no additional complaints, except as documented Cardiovascular: Cardiovascular: Reports no additional cardiovascular complaints Respiratory: Respiratory: Reports no additional respiratory complaints Gastrointestinal: Gastrointestinal: Reports no additional gastrointestinal complaints and Denies abdominal pain Genitourinary: Genitourinary: Reports no additional female genitourinary complaints Musculoskeletal: Musculoskeletal: Reports no additional musculoskeletal complaints Integumentary/Breasts: Skin/Breast: Reports as per HPI Neurologic: Reports system reviewed and no additional complaints, except as documented PMFSH Past Medical History Medical History Hyperlipidemia Hypertension Morbid obesity Type 2 diabetes mellitus Surgical History Surgical History History of section x3 History of tubal ligation Family History Family History Father Hypertension Family history of diabetes mellitus in first degree relative Mother Hypertension Family history of diabetes mellitus in first degree relative Social History Social History Smoking packs per day: 1 Smoking cigarettes per day: 20.0 Years smoked: 25 Smoking pack-years: 25.00 Smoking status: Never smoker Tobacco type: cigarettes Alcohol intake: never Substance use: never Substance use type: does not use Gender identity (if verbalized by the patient): Female Exam Narrative: obese white female she appears in no apparent distress vital signs are normal. Right groin has multiple scars from old healed boils, she has 1 right groin nodular minimally tender mass 1 cm and a smaller 1/2 a cm mildly tender without surrounding erythema or warmth. Course Vital Signs Vital signs: Vital Signs Temperat
[2022-06-19] MEDS: AMOXICILLIN/CLAVULANATE K 875-125 MG TAB 1 TABLET PO (11:50)
[2022-06-19 11:59] VITALS: BP 94/55; PULSE 86; RESP 16; O2SAT 95
== END 2022-06-19 12:02 | disposition home or self-care (01) ==
PROVIDERS: Emergency Provider Emergency Medicine; PCP Family Medicine
DX: L02.214 Cutaneous abscess of groin (principal)
CPT/HCPCS: 99283; A9270

== ENCOUNTER 2023-01-08 01:21 | Emergency (ER) | payer OTHER, SELFPAY ==
[2023-01-08 01:23] VITALS: BP 117/88; PULSE 112; RESP 20; TEMP 36.1; O2SAT 95
--- NOTE | 2023-01-08 01:37 | ED.SKABFB ---
HPI - Skin/Abscess/Foreign Bdy General Chief complaint: Skin/Abscess/Foreign Body Stated complaint: Boil Source: patient Mode of arrival: ambulatory Limitations: no limitations History of Present Illness HPI narrative: this is a 47-year-old female with a history of diabetes that presents with a small abscess in the perennial area that is nonfluctuant no drainage is mildly tender to touch patient has history of abscess and boils. Currently no fever chills complaint: abscess/boil Onset (ago): day(s) Location: genitals Severity: mild Severity scale (1-10): 2 Related Data Home Medications Medication Instructions Recorded Confirmed atorvastatin 20 mg tablet 20 mg PO DAILY 06/13/20 06/19/22 clonidine HCl 0.2 mg tablet 0.2 mg PO BID 06/13/20 06/19/22 metformin 1,000 mg tablet 1,000 mg PO BID 06/13/20 06/19/22 empagliflozin 10 mg tablet 10 mg PO DAILY 07/24/21 06/19/22 (Jardiance) blood sugar diagnostic ([employer] 11/28/21 04/27/22 Ultra Test strips) lancets 33 gauge (OneTouch Delica 11/28/21 04/27/22 Plus Lancet) liraglutide 0.6 mg/0.1 mL (18 mg/3 0.6 mg subcut WEEKLY 11/28/21 06/19/22 mL) subcutaneous pen injector (Victoza 2-Oswald) lisinopril 10 1 tablet PO DAILY 11/28/21 06/19/22 mg-hydrochlorothiazide 12.5 mg tablet pen needle, diabetic 32 gauge x 11/28/21 11/28/2108/31 (Novofine 32) Allergies Allergy/AdvReac Type Severity Reaction Status Date / Time divalproex sodium Allergy Severe Hives Verified 06/19/22 10:53 [From Depakote] haloperidol Allergy Unknown Unknown Verified 06/19/22 10:53 lithium Allergy Unknown Unknown Verified 06/19/22 10:53 Sulfa (Sulfonamide Allergy Unknown Hives Verified 06/19/22 10:53 Antibiotics) Review of Systems Review of Systems: All systems reviewed & are unremarkable except as noted in HPI and below PMFSH Past Medical History Medical History Hyperlipidemia Hypertension Morbid obesity Type 2 diabetes mellitus Surgical History Surgical History History of section x3 History of tubal ligation Family History Family History Father Hypertension Family history of diabetes mellitus in first degree relative Mother Hypertension Family history of diabetes mellitus in first degree relative Social History Social History Smoking packs per day: 1 Smoking cigarettes per day: 20.0 Years smoked: 25 Smoking pack-years: 25.00 Smoking status: Never smoker Tobacco type: cigarettes Alcohol intake: never Substance use: never Substance use type: does not use Living arrangements: with family Occupation/Education: unemployed Gender identity (if verbalized by the patient): Female Exam Const: General: healthy appearing Nutritional Appearance: well nourished Orientation/consciousness: patient oriented x3 Limitations: no limitations HENMT: Head: normal to inspection Eyes: Conjunctivae: conjunctivae normal Pupils: Equal, round and reactive pupils present EOM: EOMs intact bilaterally Neck: Neck: normal visual inspection Chest: Chest palpation & inspection: normal inspection of the chest Resp: Effort & Inspection: normal respiratory effort Auscultation: clear to auscultation bilaterally Cardio: Rhythm: regular rhythm GI: Auscultation: normal bowel sounds : Other: small nonfluctuant area the pre meal region with no drainage mildly tender to touch. Skin: General skin exam: normal color Wounds: wounds noted Neuro: General: patient oriented x3 and moves all extremities Extrem: General: normal to inspection Psych: Mental Status: mental status grossly normal Affect: normal affect Course Course Emergency Course: Patient has small abscess currently does not need to be lanced
[2023-01-08] MEDS: cefTRIAXone 1 GM, LIDOCAINE HCL 1% LOCAL INJ 2.1 ML IM (01:44)
== END 2023-01-08 01:55 | disposition home or self-care (01) ==
PROVIDERS: Emergency Provider Emergency Medicine; PCP Family Medicine
DX: N76.4 Abscess of vulva (principal); E78.5 Hyperlipidemia, unspecified; I10 Essential (primary) hypertension; E11.9 Type 2 diabetes mellitus without complications; F17.210 Nicotine dependence, cigarettes, uncomplicated
CPT/HCPCS: 96372; 99283; J0696

== ENCOUNTER 2023-02-06 20:43 | Emergency (ER) | payer OTHER, SELFPAY ==
[2023-02-06 20:44] VITALS: BP 138/86; PULSE 106; RESP 20; TEMP 37.1; O2SAT 96
--- NOTE | 2023-02-06 21:06 | ED.GENADULT ---
HPI - General Adult General Chief complaint: Skin/Abscess/Foreign Body Stated complaint: Boil History of Present Illness HPI narrative: Devora is a 47F wioth a PMH of morbid obesity, DMII, HLD, HTN and recurrent boils that presented to the ED with a boil on her left inferior buttock enlarging for a number of weeks. It is getting more painful so she came in. There is no fevers, chills, N/V, CP, dyspnea or diarrhea. Related Data Home Medications Medication Instructions Recorded Confirmed atorvastatin 20 mg tablet 20 mg PO DAILY 06/13/20 06/19/22 clonidine HCl 0.2 mg tablet 0.2 mg PO BID 06/13/20 06/19/22 metformin 1,000 mg tablet 1,000 mg PO BID 06/13/20 06/19/22 empagliflozin 10 mg tablet 10 mg PO DAILY 07/24/21 06/19/22 (Jardiance) [facility] 04/27/22 Ultra Test strips) lancets [facility] gauge ([facility] Del[facility] 11/28/21 04/27/22 Plus Lancet) liraglutide 0.6 mg/0.1 mL (18 mg/3 0.6 mg subcut WEEKLY 11/28/21 06/19/22 mL) subcutaneous pen injector ([employer] 2-Oswald) lisinopril 10 1 tablet PO DAILY 11/28/21 06/19/22 mg-hydrochlorothiazide 12.5 mg tablet pen needle, diabetic 32 gauge x 11/28/21 11/28/21 1/4 (Novofine 32) Allergies Allergy/AdvReac Type Severity Reaction Status Date / Time divalproex sodium Allergy Severe Hives Verified 06/19/22 10:53 [From Depakote] haloperidol Allergy Unknown Unknown Verified 06/19/22 10:53 lithium Allergy Unknown Unknown Verified 06/19/22 10:53 Sulfa (Sulfonamide Allergy Unknown Hives Verified 06/19/22 10:53 Antibiotics) Review of Systems Review of Systems: All systems reviewed & are unremarkable except as noted in HPI and below PMFSH Past Medical History Medical History Hyperlipidemia Hypertension Morbid obesity Type 2 diabetes mellitus Surgical History Surgical History History of section x3 History of tubal ligation Family History Family History Father Hypertension Family history of diabetes mellitus in first degree relative Mother Hypertension Family history of diabetes mellitus in first degree relative Social History Social History Smoking packs per day: 1 Smoking cigarettes per day: 20.0 Years smoked: 25 Smoking pack-years: 25.00 Smoking status: Never smoker Tobacco type: cigarettes Alcohol intake: never Substance use: never Substance use type: does not use Living arrangements: with family Occupation/Education: unemployed Gender identity (if verbalized by the patient): Female Exam Const: General: healthy appearing and no acute distress Nutritional Appearance: well nourished Orientation/consciousness: patient oriented x3 HENMT: Head: normal to inspection Ears: external ears normal Eyes: Conjunctivae: conjunctivae normal Neck: Neck: normal visual inspection Chest: Chest palpation & inspection: normal inspection of the chest Resp: Effort & Inspection: normal respiratory effort Cardio: Rate: regular rate Skin: Other: 3cm area of erythema with fluctuance that is TTP on the inferior side of the left buttock Neuro: General: patient oriented x3 and moves all extremities Extrem: General: normal to inspection Course Vital Signs Vital signs: Vital Signs Temperature 98.7 F 02/06/23 20:44 Pulse Rate 106 H 02/06/23 20:44 Respiratory Rate 20 02/06/23 20:44 Blood Pressure 138/86 02/06/23 20:44 Pulse Oximetry 96 02/06/23 20:44 Oxygen Delivery Room Air 02/06/23 20:44 Temperature 98.7 F 02/06/23 20:44 Pulse Rate 106 H 02/06/23 20:44 Respiratory Rate 20 02/06/23 20:44 Blood Pressure 138/86 02/06/23 20:44 Pulse Oximetry 96 02/06/23 20:44 Oxygen Delivery Room Air 02/06/23 20:44 Procedu
[2023-02-06] MEDS: LIDO 1%/EPINEPHRINE 1:100,000 20 ML VIAL INFILTRATE (21:15)
[2023-02-06] MEDS: CLINDAMYCIN HCL 150 MG CAP 300 MG PO (21:25)
[2023-02-06 21:26] VITALS: PULSE 94; RESP 18; O2SAT 93
== END 2023-02-06 21:29 | disposition home or self-care (01) ==
LOC: CHSED 21:23
PROVIDERS: Emergency Provider Family Medicine; PCP Family Medicine
DX: L02.32 Furuncle of buttock (principal); E78.5 Hyperlipidemia, unspecified; I10 Essential (primary) hypertension; E11.9 Type 2 diabetes mellitus without complications; F17.210 Nicotine dependence, cigarettes, uncomplicated; Z79.4 Long term (current) use of insulin
CPT/HCPCS: 10060; 99283; A9270

== ENCOUNTER 2023-03-08 22:23 | Emergency (ER) | payer OTHER, SELFPAY ==
[2023-03-08 22:25] VITALS: BP 126/67; PULSE 104; RESP 18; TEMP 36.6; O2SAT 97
--- NOTE | 2023-03-08 22:27 | ED.SKABFB ---
HPI - Skin/Abscess/Foreign Bdy General Chief complaint: Skin/Abscess/Foreign Body Stated complaint: Boil Source: patient Mode of arrival: ambulatory Limitations: no limitations History of Present Illness HPI narrative: 47-year-old female, smoker with a history of obesity, hypertension, dyslipidemia, diabetes mellitus, recurrent cellulitis/ abscesses presents to the ER with a 2 day history of -- 2 cm raised erythematous swelling on the medial buttock. No fever or chills. No discharge. MD complaint: other ( Cellulitis) Onset (ago): day(s) ( 2 days ago) Tetanus up to date: no Location: RLE ( right medial buttock) Severity: mild Quality: aching Pain Consistency: intermittent Relieving factors: none Exacerbating factors: none Context: none Associated symptoms: denies other symptoms Treatments prior to arrival: none Related Data Home Medications Medication Instructions Recorded Confirmed atorvastatin 20 mg tablet 20 mg PO DAILY 06/13/20 03/08/23 clonidine HCl 0.2 mg tablet 0.2 mg PO BID 06/13/20 03/08/23 metformin 1,000 mg tablet 1,000 mg PO BID 06/13/20 03/08/23 empagliflozin 10 mg tablet 10 mg PO DAILY 07/24/21 03/08/23 (Jardiance) blood sugar diagnostic ([facility] 11/28/21 03/08/23 Ultra Test strips) lancets [facility] ([facility] 11/28/21 03/08/23 Plus Lancet) liraglutide 0.6 mg/0.1 mL (18 mg/3 0.6 mg subcut WEEKLY 11/28/21 03/08/23 mL) subcutaneous pen injector (Victoza 2-Oswald) lisinopril 10 1 tablet PO DAILY 11/28/21 03/08/23 mg-hydrochlorothiazide 12.5 mg tablet pen needle, diabetic 32 gauge x 11/28/21 03/08/2308/31 (Novofine 32) Allergies Allergy/AdvReac Type Severity Reaction Status Date / Time divalproex sodium Allergy Severe Hives Verified 06/19/22 10:53 [From Depakote] haloperidol Allergy Unknown Unknown Verified 06/19/22 10:53 lithium Allergy Unknown Unknown Verified 06/19/22 10:53 Sulfa (Sulfonamide Allergy Unknown Hives Verified 06/19/22 10:53 Antibiotics) Review of Systems Review of Systems: All systems reviewed & are unremarkable except as noted in HPI and below Constitutional: Constitutional: Reports as per HPI and Reports no additional constitutional complaints Eyes: Eyes: Reports as per HPI and Reports no additional eye complaints ENT: Reports system reviewed and no additional complaints, except as documented and Reports as per HPI Cardiovascular: Cardiovascular: Reports as per HPI and Reports no additional cardiovascular complaints Respiratory: Respiratory: Reports as per HPI and Reports no additional respiratory complaints Gastrointestinal: Gastrointestinal: Reports as per HPI and Reports no additional gastrointestinal complaints Genitourinary: Genitourinary: Reports no additional female genitourinary complaints and Reports as per HPI Musculoskeletal: Musculoskeletal: Reports no additional musculoskeletal complaints and Reports as per HPI Integumentary/Breasts: Skin/Breast: Reports system reviewed and no additional complaints, except as docu Comments: 2 cm erythematous tender raised swelling over the right medial buttock Neurologic: Reports system reviewed and no additional complaints, except as documented and Reports as per HPI Psychiatric: Psychiatric: Reports no additional psychiatric complaints and Reports as per HPI Endocrine: Endocrine: Reports no additional endocrine complaints and Reports as per HPI Hematologic/Lymphatic: Hematologic/Lymphatic: Reports no additional hematologic/lymphatic complaints and Reports as per HPI Allergic/Immunologic: Allergic/Immunologic: Reports no additional allergic/immunologic complaints and Reports as per HPI PMFSH Past Medical History Medical History Hyperlipidemia Hypertension Morbid obesity Type 2 diabetes mellitus Surgical History Surgical History History of section x3
[2023-03-08 22:41] LABS: Glucose Point of Care 203 mg/dl (65-105)
[2023-03-08] MEDS: TETANUS,DIPHTHERIA,AC PERTUSSIS ADULT 0.5 ML (ADACEL) IM (22:49)
[2023-03-08] MEDS: AMOXICILLIN/CLAVULANATE K 875-125 MG TAB 1 TABLET PO (22:50)
[2023-03-08 22:53] VITALS: BP 138/88; PULSE 80; RESP 18; TEMP 37.2; O2SAT 98
== END 2023-03-08 22:57 | disposition home or self-care (01) ==
LOC: CHSED 22:53
PROVIDERS: Emergency Provider Internal Medicine Critical Care Medicine; PCP Family Medicine
DX: L03.317 Cellulitis of buttock (principal); I10 Essential (primary) hypertension; E11.9 Type 2 diabetes mellitus without complications; F17.210 Nicotine dependence, cigarettes, uncomplicated; Z79.4 Long term (current) use of insulin; Z23 Encounter for immunization
CPT/HCPCS: 82948; 90471; 90715; 99283; A9270

== ENCOUNTER 2023-04-05 23:02 | Emergency (ER) | payer OTHER, SELFPAY ==
[2023-04-05 23:03] VITALS: BP 109/71; PULSE 76; RESP 16; TEMP 36.8; O2SAT 96
--- NOTE | 2023-04-05 23:04 | ED.SKABFB ---
HPI - Skin/Abscess/Foreign Bdy General Chief complaint: Skin/Abscess/Foreign Body Stated complaint: Boil Related Data Home Medications Medication Instructions Recorded Confirmed atorvastatin 20 mg tablet 20 mg PO DAILY 06/13/20 04/05/23 clonidine HCl 0.2 mg tablet 0.2 mg PO BID 06/13/20 04/05/23 metformin 1,000 mg tablet 1,000 mg PO BID 06/13/20 04/05/23 empagliflozin 10 mg tablet 10 mg PO DAILY 07/24/21 04/05/23 (Jardiance) blood sugar diagnostic (OneTouch 11/28/21 04/05/23 Ultra Test strips) lancets 33 gauge (RAD TechnologiesTouch Delica 11/28/21 04/05/23 Plus Lancet) liraglutide 0.6 mg/0.1 mL (18 mg/3 0.6 mg subcut WEEKLY 11/28/21 04/05/23 mL) subcutaneous pen injector (Symbolic IO 2-Oswald) lisinopril 10 1 tablet PO DAILY 11/28/21 04/05/23 mg-hydrochlorothiazide 12.5 mg tablet pen needle, diabetic 32 gauge x 11/28/21 04/05/23/ (Novofine 32) Allergies Allergy/AdvReac Type Severity Reaction Status Date / Time divalproex sodium Allergy Severe Hives Verified 06/19/22 10:53 [From Depakote] haloperidol Allergy Unknown Unknown Verified 06/19/22 10:53 lithium Allergy Unknown Unknown Verified 06/19/22 10:53 Sulfa (Sulfonamide Allergy Unknown Hives Verified 06/19/22 10:53 Antibiotics) Review of Systems Review of Systems: All systems reviewed & are unremarkable except as noted in HPI and below Constitutional: Constitutional: Reports as per HPI Comments: 48-year-old female smoker with obesity, hypertension, dyslipidemia, diabetes mellitus on Victoza, Lantus, metformin and Jardiance with recurrent buttock cellulitis presents to the ER with -- 2 cm painful swelling on the medial left buttock adjacent to the rectum. No fever or chills. Patient states that her blood sugars have been marginally high. Eyes: Eyes: Reports as per HPI and Reports no additional eye complaints ENT: Reports system reviewed and no additional complaints, except as documented and Reports as per HPI Cardiovascular: Cardiovascular: Reports as per HPI and Reports no additional cardiovascular complaints Respiratory: Respiratory: Reports as per HPI and Reports no additional respiratory complaints Gastrointestinal: Gastrointestinal: Reports as per HPI and Reports no additional gastrointestinal complaints Genitourinary: Genitourinary: Reports no additional female genitourinary complaints Musculoskeletal: Musculoskeletal: Reports no additional musculoskeletal complaints and Reports as per HPI Integumentary/Breasts: Skin/Breast: Reports system reviewed and no additional complaints, except as docu Comments: 2 cm swelling on the left medial thigh adjacent to the rectum Neurologic: Reports system reviewed and no additional complaints, except as documented and Reports as per HPI Psychiatric: Psychiatric: Reports no additional psychiatric complaints and Reports as per HPI Endocrine: Endocrine: Reports no additional endocrine complaints and Reports as per HPI Hematologic/Lymphatic: Hematologic/Lymphatic: Reports no additional hematologic/lymphatic complaints and Reports as per HPI Allergic/Immunologic: Allergic/Immunologic: Reports no additional allergic/immunologic complaints and Reports as per HPI PMFSH Past Medical History Medical History Hyperlipidemia Hypertension Morbid obesity Type 2 diabetes mellitus Surgical History Surgical History History of section x3 History of tubal ligation Family History Family History Father Hypertension Family history of diabetes mellitus in first degree relative Mother Hypertension Family history of diabetes mellitus in first degree relative Social History Social History Smoking packs per day: 1 Smoking cigarettes per day: 20.0 Years smo
[2023-04-05 23:32] LABS: Basophils Absolute Auto 0.08 K/mm3 (0.00-0.10); Basophils Percent Auto 0.6 % (0.0-1.0); Eosinophils Percent Auto 1.5 % (1.0-6.0); Hemoglobin 15.4 g/dL (12.0-15.0); Immature Granulocyte Absolute 0.09 K/mm3 (0.00-0.00); Immature Granulocyte Percent A 0.7 % (0.0-0.0); Lymphocytes Percent Auto 30.3 % (18.0-42.0); Mean Corpuscular HGB Conc 32.8 g/dL (32.0-36.0); Mean Corpuscular Hemoglobin 28.3 pg (27.0-31.0); Mean Corpuscular Volume 86.4 fL (78.0-102.0); Mean Platelet Volume 9.5 fl (9.2-11.8); Monocytes Absolute Auto 0.67 K/mm3 (0.10-0.90); Neutrophils Absolute Auto 8.4 K/mm3 (1.7-7.2); Neutrophils Percent Auto 61.9 % (50.0-70.0); Platelet Count Result 494 K/mm3 (150-420); Red Blood Count 5.44 M/mm3 (4.20-5.40); Red Cell Distribution Width 15.1 % (11.6-14.4); White Blood Count 13.5 K/mm3 (4.8-10.8)
[2023-04-05 23:36] LABS: Appearance Urine Clear (Clear); Bilirubin Urine Negative (Negative); Blood Urine 3+ (Negative); Color Urine Light Yellow (Yellow); Glucose Urine UA 3+ (Negative); Ketones Urine Negative (Negative); Leukocyte Esterase Ur Negative LEU/UL (Negative); Nitrate Urine Negative (Negative); Protein Urine Negative (Negative); Specific Grav Ur 1.015 (1.010-1.020); Urobilinogen Urine 0.2 mg/dL (0.2-1.0); pH Urine 5.5 (5.0-8.0)
[2023-04-05 23:39] LABS: Add Urine Microscopic? YES; Bacteria Urine Trace /hpf; Squamous Epithelial Cell Urine Few /hpf (Few); WBC Urine None seen /hpf (0-3)
[2023-04-05 23:46] LABS: Alanine Aminotransferase 10 U/L (14-59); Albumin Level 3.4 g/dL (3.4-5.0); Alkaline Phosphatase 85 U/L (46-116); Anion Gap 11 mmol/L (8-16); Aspartate Amino Transferase 12 U/L (15-37); Bilirubin,Total 0.2 mg/dL (0.00-1.00); Blood Urea Nitrogen 27 mg/dL (7-18); Calcium 9.2 mg/dL (8.5-10.1); Carbon Dioxide 27 mmol/L (21-32); Chloride 100 mmol/L (98-108); Estimated CRCL calculation 71 ml/min; Estimated Glomerular Filt Rate 47; Glucose 176 mg/dL (70-99); Osmolality Calculated 295 mOsm/kg (285-295); Potassium 4.2 mmol/L (3.5-5.1); Sodium 138 mmol/L (136-145); Total Protein 7.6 g/dL (6.4-8.2)
[2023-04-05 23:51] LABS: Lactic Acid Reflex 1.7 mmol/L (0.4-2.0)
[2023-04-06] MEDS: CLINDAMYCIN HCL 150 MG CAP 300 MG PO
[2023-04-06 00:20] VITALS: BP 112/70; PULSE 84; RESP 16; TEMP 36.6; O2SAT 98
--- NOTE | 2023-04-08 12:27 | PC.NURSE ---
final nasopharynx culture reviewed. no MRSA isolated
== END 2023-04-06 00:21 | disposition home or self-care (01) ==
PROVIDERS: Emergency Provider Internal Medicine Critical Care Medicine; PCP Family Medicine
DX: L03.317 Cellulitis of buttock (principal); E11.65 Type 2 diabetes mellitus with hyperglycemia; N28.9 Disorder of kidney and ureter, unspecified; I10 Essential (primary) hypertension; E78.5 Hyperlipidemia, unspecified; Z79.84 Long term (current) use of oral hypoglycemic drugs; F17.210 Nicotine dependence, cigarettes, uncomplicated
CPT/HCPCS: 36415; 80053; 81001; 83605; 85025; 87081; 99283; A9270

== ENCOUNTER 2023-08-31 16:36 | Outpatient (CLI) | payer OTHER, SELFPAY ==
--- NOTE | ~2023-08-31 | XR_ITS ---
EXAMINATION: XR foot LT min 3V DATE: 08/31/2023 17:21 INDICATION: Left foot cat scratch. TECHNIQUE: 4 views of left foot were obtained. COMPARISON: None. FINDINGS: There is valgus angulation of first interphalangeal joint. No fracture. There is mild osteo arthritis of some of the interphalangeal joints. There is an enthesophyte at plantar aspect of calcan eal tuberosity. No radiopaque foreign body. IMPRESSION: 1. Mild polyarticular osteoarthritis. Reviewed, dictated and finalized at location E. ING MANAGER
== END 2023-08-31 16:37 | disposition home or self-care (01) ==
LOC: CHSIMG 16:38
PROVIDERS: PCP Family Medicine; Visit Provider Family Medicine
DX: M79.672 Pain in left foot (principal); M19.072 Primary osteoarthritis, left ankle and foot
CPT/HCPCS: 73630

== ENCOUNTER 2023-11-27 14:28 | Outpatient (CLI) | payer OTHER, SELFPAY ==
--- NOTE | ~2023-11-27 | MM_ITS ---
EXAMINATION: MM screening kadeem BI w rustam HISTORY: Screening TECHNIQUE: Craniocaudal and mediolateral oblique 3-D tomosynthesis images were obtained and synthetic 2-D images were generated. CAD analysis was submitted and interpreted. COMPARISON: 05/11/2022 BREAST PARENCHYMAL COMPOSITION: Not dense: There are scattered areas of fibroglandular density. FINDINGS: There is no evidence of suspicious mass, calcification, or architectural distortion to sugg est malignancy in either breast. There has been no suspicious interval change. IMPRESSION: 1. No mammographic evidence of malignancy. 2. Recommend routine screening mammography in one year. BI-RADS Category 1: Negative Reviewed, dictated and finalized at location A.
[2023-11-29 20:09] LABS: Chlamydia trachomatis NOT DETECTED (NOT DETECTE); Neisseria gonorrhoeae PCR NOT DETECTED (NOT DETECTE)
== END 2023-11-27 14:29 | disposition home or self-care (01) ==
LOC: CHSIMG 14:29
PROVIDERS: PCP Family Medicine; Visit Provider Obstetrics & Gynecology
DX: Z12.31 Encounter for screening mammogram for malignant neoplasm of breast (principal); Z11.3 Encounter for screening for infections with a predominantly sexual mode of transmission
CPT/HCPCS: 77063; 77067; 87491; 87591

== ENCOUNTER 2024-11-05 00:23 | Emergency (ER) | payer OTHER, SELFPAY ==
--- OUTSIDE RECORDS SUMMARY | 2024-11-05 00:25 | XMS_ITS | Encounter Summary ---
Author Organization [facility] Address [address] [facility] [address] Phone Care Team Providers Care Milling Planer Operator Name Role Phone Lukas Solitario MD Primary Care Provider Reason for Visit * Reason Comments Medication Refill Encounter Details Date Type Department Care Team (Late st Contact Info) Description 01/16/2020 Refill [facility] [address] [place] [address] Natasha Irizarry, AIR CONDITIONING INSULATION INSTALLER, COMMERCIAL UNDERWRITER [address] [place] [address] Medication Refill Social History Tobacco Use Types Packs/Day Years Used Date Smoking Tobacco: Every Day Cigarettes Last attempted to quit: 10/04/2016 Smokeless Tobacco: Never Alcohol Use Standard Drinks/Week Comments No 0 (1 standard drink = 0.6 oz pur e alcohol) Comments No Sex and Gender Information Value Date Recorded Sex Assigned at Not on file Legal Sex Female 12:09 AM CDT Gender Identity Not on file Sexual Orientation Not on file documented as of this encounter Plan of Treatment Not on file documented as of this encounter Visit Diagnoses Diagnosis Chronic bilateral low back pain without sciatica documented in this encounter Care Teams Milling Planer Operator Relationship Specialty Start Date End Date Lukas Solitario MD [address] [place] [address] PCP - General Pediatrics 10/01/19 documented as of this encounter
--- OUTSIDE RECORDS SUMMARY | 2024-11-05 00:25 | XMS_ITS | Patient Health Summary ---
Author Organization [facility] Address [address] [address] Care Team Providers Care Production Officer Name Role Phone Vickey Spicer MD Primary Care Provider [phone] Note from [facility],non-owned Affiliates and Associated Physician Practices is amultiple site organization consisting of ambulatory clinics and hospital sitesin [place], [place], [place] and [place]. This disclosure is being madepursuant to the Care Everywhere program and may not contain all information available regarding this patient. Last updated 18.[facility] Social History Tobacco Use Types Packs/Day Years Used Date Smoking Tobacco: Never Assessed Sex and Gender Information Value Date Recorded Sex Assigned at Not on file Gender Identity Not on file Sexual Orientation Not on file Procedures * SONOGRAM - COMPLETE(Performed 10/04/2010) Results * SONOGRAM - COMPLETE (10/04/2010 11:18 AM HOME CONNECT LPN) Anatomical Region Laterality Modality Other 10/04/2010 11:1 8 AM HOME CONNECT LPN Narrative 10/04/2010 1:31 PM HOME CONNECT LPN [facility] Evaluation [facility] Treatment Unit PHONE: FAX: Pat. Name: SYLVESTER TAMAYO Pat. No: [id number] Study Date: 10/04/2010 11:18am , Age: 07 1975, 35 LMP: Unknown GA by US: 18.5 weeks GA Selected: 18.7 weeks (From Known E) KHURRAM: 03/02/2011 Referring MD: RUDY AKBAR MD Veterinarian Assistant: Ann Mar RDMS Hist/Ind: AMA MEASUREMENTS & AGE GROWTH EVALUATION Measurement GA Range Source %for GA Ratios ---- ------- ------- BPD 4.0 cm 18.1 (16.4-19.8) Hadlock BPD 35% FL/BPD 0.71 HC 15.5 cm 18.4 (16.9-19.9) Hadlock HC 42% FL/AC 0.22 AC 13.0 cm 18.5 (16.4-20.6) Hadlock AC 45% HC/AC 1.19 (1.07 - 1.26) FL 2.8 cm 18.7 (16.9-20.5) Hadlock FL 50% CI 0.75 (0.70 - 0.86) HL 2.8 cm 18.9 (16.2-21.6) Raysa HL 53% GA for sonogram 18.5 wk (16.6-20.5) Weight Estimate: based on (HL,BPD,HC,AC,FL) Avg Weight: 247 gm (211-283) Hadlock : 0lbs, 8oz Heart Rate: 145.0 bpm CLINICAL SUMMARY Study Number: 1 A vanessa fetus is identified in cephalic presentation. The measurements today are consistent with appropriate growth compared to previous examination. The KHURRAM selected is based on a prior ultrasound examination.. The amniotic fluid volume is within normal limits. The placenta is posterior and grade 1. No major malformations are visualized, although the anatomy screen is not complete. The patient was advised that ultrasound does not allow detection of all structural or chromosomal abnormalities. IMPRESSION: 1) Size is consistent with previously assigned dating. 2) No major/minor anomalies are seen at this time, although the anatomy screen is not complete with today's exam. RECOMMEND: Repeat ultrasound in 4 weeks to complete the anatomic survey. Kuldeep Giang MD <Electronic Signature> 10/04/2010 01:30pm Rudy Akbar MD [facility] ORDERABLES Care Teams Production Officer Relationship Specialty Start Date End Date Vickey Spicer MD [address] [place] [address] PCP - General 02/12/19
--- OUTSIDE RECORDS SUMMARY | 2024-11-05 00:25 | XMS_ITS | Encounter Summary ---
Author Organization [facility] Address [address] [place] [address] Phone Care Team Providers Care Accreditation Coordinator Name Role Phone Lukas Solitario MD Primary Care Provider [phone] Reason for Visit * Reason Onset Date Comments Pain Management 11/29/2019 Encounter Details Date Type Department Care Team (Late st Contact Info) Description 11/29/2019 Telephone [facility] [address] [place] [address] Natasha Irizarry, EXCHANGE CONSULTANT, FOUR CORNER STAYER MACHINE OPERATOR [address] [place] [address] Pain Management Social History Tobacco Use Types Packs/Day Years [...] on file documented as of this encounter Miscellaneous Notes * Telephone Encounter - Kaelyn Leal - 12/18/2019 12:34 PM CDT Called patient, left message to return call. * Telephone Encounter - Kaelyn Leal - 11/29/2019 1:10 PM CDT Patient called, she is requesting something for pain. She states that she is in severe pain and cannot get around because of her back pain. She was seen on 10-01-19, she states that she was given scripts for Naproxen 500mg, 1 tab-2 x daily and Robaxin 750mg, 1 tab-2 x daily. She states that the Robaxin at the time was not covered by her insurance which was Medicaid. Smiley was called in to replace the Robaxin but she states she never picked it up because her insurance changed to [place] andit was covered so she picked up the Robaxin and starting taking it and the Naproxen and never received relief. She states she stopped taking the Naproxen and starting taking Tylenol 500mg, 4 tabs-4 xdaily, every 6 hrs w/o relief. She states that she is changing insurance to [place] today. There is a order for a SI Joint Injection is in the system but she needs to complete PT first so she is also requesting a order for PT. Please advise documented in this encounter Plan of Treatment Not on file documented as of this encounter Visit Diagnoses Not on filedocumented in this encounter Care Teams Accreditation Coordinator Relationship Specialty Start Date End Date Lukas Solitario MD [address] [place] [address] PCP - General Pediatrics 10/01/19 documented as of this encounter
--- OUTSIDE RECORDS SUMMARY | 2024-11-05 00:25 | XMS_ITS | Continuity of Care Document ---
Author Organization [facility] Address [address] [facility] [place] [address] Phone Care Team Providers Care Geospatial Image Analyst Name Role Phone Slade Hoover MD Unavailable Unavailable Allergies, Adverse Reactions, Alerts Substance Reaction Status Criticality HALOPERIDOL LACTATE Active No Infor mation haloperidol Active No Information lithium Active No Information Sulfa (Sulfonamide Antibiotics) Active No Information Medications Medication Instructions Dosage Effective Dates (start - stop) Status Comments Ativan 0.5 mg tablet take 1 Tablet by oral route every bedtime as needed 0.5 MG - Active PRN for anxiety, avoid ddriving or operate machines clonidine HCl 0.2 mg tablet take 1 tablet by oral route 2 times every day 0.2 MG - Active lisinopril 20 mg-hydrochlorothi azide 12.5 mg tablet take 1 tablet by oral route every day 1.00 tablet - Active Procedures Procedure Date OFFICE/OUTPATIENT VISIT, EST Advance Directives Directive Yes / No Effective Date File Name No Information Encounters Encounter Description Practice Location Reason(s) For Visit Diagnoses Date Provider Providers Copied on Encounter [facility], [place], [address], [place], [id number], [place] tel:[phone] [facility], [place] No Information 6 Kiko June. [address] [facility] [place], [id number] , [place]. tel:[phone] Referring Provider: Slade Hoover, [address] [place], [place], [id number]. tel:[phone] OFFICE/OUTPA TIENT VISIT, EST [facility], [place], [address], [place], [place], [id number], [place] tel:[phone] [facility] Medicine anxiety1 (chief complaint) HTN1 (chief complaint) ADD (chief complaint) back pain1 (chief complaint) Essential (primary) hypertensionAttenti on deficitGeneralized anxiety disorderLumbago 6 Kiko June. [address], [place], [place], [id number] , [place]. tel:[phone] Referring Provider: Slade Hoover, [address], [place], [place], [address]. tel:[phone] Family History Family Member Type Diagnosis Age At Onset Mother Problem (finding) manic deprssive, HTN Father Problem (finding) Diabetes mellitus type 2 Father Problem (finding) Alive and well Brother Problem (finding) Alive and well Brother Problem (finding) Hypertension Payers Payer name Insurance type Covered constitution party ID Authoriza tion(s) No Information Social History Type Description Quantity Date Captured Comments Sex Female Smoking Status No Information Chief Complaint And Reason For Visit No Information Plan Of Treatment Date Type Action Status No Information History Of Present Illness Encounter Date Complaint History Of Prese nt Illness back pain1 Pt has chronic l ow back pain Pt states that she fell several years ago and has been having back pain. Pt deneis any loss of bowel or bladder control ADD Pt states that s he takes adderall for ADD symptoms. Pt states that she has difficulty with focus and concentration. Pt states that last time she had adderall was back in September 12. HTN1 Pt takes lisinop ril and clonidine for HTn Her BP is stalbe. Pt denies any chest pain or headache anxiety1 Pt has chronic a nxiety without depression. Pt takes ativan PRN. Pt denies any suicidal or homicidal thought Pt is fighting for her children custody. Pt denies any crying spells. pt denies any feeling of hopelessless. Pt has long standing history of psychiatry issue. Instructions Date Instruction Additional Infor mation Prescribed Activity and Exercise Education Related to Dietary Surveillance and Counseling Prescribed Diet Educ ation/Lifestyle Education Regarding Diet Related to Dietary Surveillance and Counseling Assessments Type Assessment Date No Information
--- OUTSIDE RECORDS SUMMARY | 2024-11-05 00:25 | XMS_ITS | Clinical Summary ---
Author Organization [facility] Address [address] [facility], [address] [address] Phone Care Team Providers Care Scaffold Setter Name Role Phone Lukas Solitario MD Primary Care Provider [phone] Allergies Active Allergy Reactions Criticality Noted Date Comments Valproic Acid Itching 08/20/2016 Haloperidol Lactate Other (see Comments) 2015 tense up [place] Other (see Comments) 12/30/2015 act weird Sulfa Antibiotics Hives 12/30/2015 Medications cloNIDine (CATAPRES) 0.2 MG Tablet Take 1 Tab by mouth 2 times daily. 30 Tab 0 6 Active lisinopril-hydr oCHLOROthiazide (PRINZIDE, ZESTORETIC) 20-12.5 MG Tablet Take 1 Tab by mouth daily. 30 Tab 0 6 Active cetirizine (ZYRTEC) 10 MG Tablet Take 1 Tab by mouth daily. 30 Tab 0 6 Active sertraline (ZOLOFT) 25 MG Tablet Take 1 Tab by mouth daily. 30 Tab 0 6 Active Additional Information Patient not taking.Reported on 01/07/2019 LORazepam (ATIVAN) 0.5 MG Tablet Take 1 Tab by mouth 3 times daily. 30 Tab 0 6 Active Additional Information Patient not taking.Reported on 01/07/2019 hydrOXYzine (VISTARIL) 25 MG Capsule Take 1 Cap by mouth 3 times daily as needed for Itching. 20 Cap 0 6 Active chlorhexidine (PERIDEX) 0.12 % Solution Take 15 mL by mouth 2 times daily. 473 mL 0 6 Active Additional Information Patient not taking.Reported on 01/07/2019 methylPREDNISol one (MEDROL DOSPACK) 4 MG Tablet Therapy Pack Use as per instructions on package. 1 Each 0 7 Active Additional Information Patient not taking.Reported on 01/07/2019 traMADol (ULTRAM) 50 MG Tablet Take 1-2 Tabs by mouth every 6 hours as needed for Moderate pain (4-6) or more severe pain if patient requests. 15 Tab 8 Active Additional Information Patient not taking.Reported on 01/07/2019 simvastatin (ZOCOR) 10 MG Tablet Take 10 mg by mouth every evening. Active traMADol (ULTRAM) 50 MG Tablet Take 1 Tab by mouth every 6 hours as needed for Moderate or more severe pain. 12 Tab 8 Active Additional Information Patient not taking.Reported on 01/07/2019 azithromycin (ZITHROMAX) 250 MG Tablet 2 tab(s) daily for 1 day, then 1 tab(s) daily for days 2-5. 6 Tab 8 Active Additional Information Patient not taking.Reported on 01/07/2019 traZODone (DESYREL) 100 MG Tablet Take 100 mg by mouth nightly. Active metFORMIN (GLUCOPHAGE) 500 MG Tablet Take 500 mg by mouth 2 times daily (with meals). Active buPROPion (WELLBUTRIN) 150 MG XL tablet Take 150 mg by mouth every morning. Active omeprazole (PRILOSEC) 20 MG CAPSULE DELAYED RELEASE Take 1 Cap by mouth daily. 30 Cap 2 9 Active predniSONE (DELTASONE) 50 MG Tablet Take 1 Tab by mouth daily. Starting on 01/30/2019 5 Tab 9 Active Additional Information Patient not taking.Reported on 10/01/2019 albuterol 108 (90 Base) MCG/ACT Aerosol Solution take 2 Puffs by inhalation every 6 hours as needed for Cough. 1 Inhaler 9 Active HYDROcodone-stephanie taminophen (NORCO) 5-325 MG Tablet Take 1 Tab by mouth every 8 hours as needed for Moderate or more severe pain. 10 Tab 9 Active Additional Information Patient not taking.Reported on 10/01/2019 nystatin (MYCOSTATIN) 701733 UNIT/GM Cream Apply 2 times daily. 30 g 1 9 Active naproxen (NAPROSYN) 500 MG Tablet Take 1 Tab by mouth 2 times daily as needed for Moderate or more severe pain. 60 Tab 9 Active naproxen (NAPROSYN) 500 MG Tablet Take 1 Tab by mouth 2 times daily (with meals). 60 Tab 0 Active cyclobenzaprine (FLEXERIL) 10 MG Tablet Take 1 Tab by mouth 2 times daily as needed for Muscle spasms. 60 Tab 0 Active methocarbamol (ROBAXIN) 750 MG TabletIndicatio ns:Chronic bilateral low back pain without sciatica TAKE 1 TABLET BY MOUTH TWICE A DAY 60 Tab 0 Active Active Problems Problem Noted Date Diagnosed Date Chronic bilateral low back pain without sciatica 03/12/2019 Sacroiliac joint dysfunction of both sides 03/12 Acute pain of right shoulder due to trauma 01/07 Chronic pain of left knee 01/07/2019 Chronic pain of right ankle 01/07/2019 Immunizations Immunization Administration Dates Next Due TDAP Vaccine 01/29/2018 Social History Tobacco Use Types Packs/Day Years Used Date Smoking Tobacco: Every Day Cigarettes Last attempted to quit: 10/04/2016 Smokeless Tobacco: Never Tobacco Cessation:Ready to Q uit: No; Counseling Given: Yes Alcohol Use Standard Drinks/Week Comments No 0 (1 standard drink = 0.6 oz pur e alcohol) Comments No Sex and Gender Information Value Date Recorded Sex Assigned at Not on file Legal Sex Female 12:09 AM CDT Gender Identity Not on file Sexual Orientation Not on file Last Filed Vital Signs Vital Sign Reading Time Taken Comments Blood Pressure 141/78 10/08/2019 11:39 AM RETORT CONDENSER ATTENDANT Pulse 87 10/08/2019 11:39 AM RETORT CONDENSER ATTENDANT Temperature 36.6 C (97.8 F) 10/08/2019 11:39 AM RETORT CONDENSER ATTENDANT Respiratory Rate 18 02/10/2019 4:55 PM CDT Oxygen Saturation 98% 10/08/2019 11:39 AM RETORT CONDENSER ATTENDANT Inhaled Oxygen Concentration - - Weight 149.7 kg (330 lb) 02/10/2019 4:13 PM CDT Height 165.1 cm (5' 5 ) 02/10/2019 4:13 PM CDT Body Mass Index 54.91 02/10/2019 4:13 PM CDT Plan of Treatment Health Maintenance Due Date Last Done Comments Hepatitis B Immunization (1 of 3 - 19+ 3-dose series) 1994 Pap Smear 1996 Cervical Cancer Screening (CCS) 2005 HPV/Cotest 2005 Discussion re Starting/Frequency of Mammograms 2015 Colonoscopy 2020 Colorectal Cancer Screening 2020 Influenza Immunization (#1) 2024 05/27/2016 SARS-COV-2 Immunization (3 - 2023- season) 2024 12/06/2020, 11/12/2020 Respiratory Syncytial Virus (RSV) Immunization (Adult) (1 - 1-dose 75+ series) 2050 Hepatitis C Virus (HCV) Screening Completed 09/20/2017, 09/29/2016, 01/26/2016, Additional history exists DTaP/Tdap/Td Immunization Discontinued 01/29/2018, 08/2010 Meningococcal Immunization (ACWY) Aged Out No longer eligible based on patient's age to complete this topic Pneumococcal Immunization Combined Aged Out No longer eligible based on patient's age to complete this topic Rotavirus Immunization Aged Out No lo nger eligible based on patient's age to complete this topic Procedures Procedure Name Priority Date/Time Associated Diagnosis Comments HEPATITIS PANEL ACUTE (AHP) Routine 09/20/2017 2:45 PM RETORT CONDENSER ATTENDANT Encounter for screening for infections with a predominantly sexual mode of transmission from Last 3 Months or Most Recently Relevant to Health Maintenance Results * HEPATITIS PANEL ACUTE (AHP) (09/20/2017 2:45 PM RETORT CONDENSER ATTENDANT) HEPATITIS A IGM ANTIBODY NON DETECTED NON DETECTED 09/20/2017 10:56 PM RETORT CONDENSER ATTENDANT [facility] Comment: IGM Antibodies to HAV not detected. Does not exclude early acute or recovered HAV infection. HEP B CORE AB (IGM) NON DETECTED NON DETECTED 09/20/2017 10:56 PM RETORT CONDENSER ATTENDANT [facility] Comment: IGM anti-HBC not detected. Does not exclude the possibility of exposure to or infection with HBV. HEPATITIS B SURFACE ANTIGEN NON DETECTED NON DETECTED 09/20/2017 10:56 PM RETORT CONDENSER ATTENDANT [facility] Comment: A nonreactive test result does not exclude the possibility of exposure to or infection with Hepatitis B virus. A nonreactive test result in individuals with prior exposure to hepatitis B may be due to antigen levels below the detection limit of this assay or lack of antigen reactivity to the antibodies in this assay. hepatitis C antibody 0.06 <1 S/CO 09/20/2017 10:56 PM RETORT CONDENSER ATTENDANT [facility] Comment: Signal/Cutoff ratio < 0.79 is Nondetected Signal/Cutoff ratio 0.80-0.99 is Grayzone Signal/Cutoff ratio > 0.99 is Detected Supplemental assays are recommended if signal/cutoff ratio is >/=1.00. Signal/cutoff ratio result >/= 5.00 is 97% predictive of positivity for recombinant immunoblot assay (RIBA) and will be reported to the [place] Department of Public Health as required. Blood specimen (specimen) Venipuncture / Unknown 09/20/2017 2:45 PM RETORT CONDENSER ATTENDANT 09/20/2017 4:33 PM RETORT CONDENSER ATTENDANT us Not On File Provider HEMATOLOGY ORDERABLES Final Result [facility] [address] [place] [address], from Last 3 Months or Most Recently Relevant to Health Maintenance Insurance MEDICAID [place] Care Teams Scaffold Setter Relationship Specialty Start Date End Date Lukas Solitario MD [address] [place] [address] PCP - General Pediatrics 10/01/19
--- OUTSIDE RECORDS SUMMARY | 2024-11-05 00:25 | XMS_ITS | Clinical Summary ---
Author Organization [facility] Address [address] [place] [address] Care Team Providers Care Dean Of Instruction Name Role Phone Vickey Spicer MD Primary Care Provider [phone] Source Comments [facility],non-owned Affiliates and Associated Physician Practices is amultiple site organization consisting of ambulatory clinics and hospital sitesin [place], [place], [place] and [place]. This disclosure is being madepursuant to the Care Everywhere program and may not contain all information available regarding this patient. Last updated 18.[facility] Social History Tobacco Use Types Packs/Day Years Used Date Smoking Tobacco: Never Assessed Sex and Gender Information Value Date Recorded Sex Assigned at Not on file Gender Identity Not on file Sexual Orientation Not on file Plan of Treatment Health Maintenance Due Date Last Done Comments COLOGUARD (AGES 45-75) - COL ON CA SCREENING 1975 COLON MONITORING 1975 COLONOSCOPY - COLON CA SCREENING 1975 CT COLONOGRAPHY - COLON CA SCREENING 1975 Colorectal Cancer Screening 1975 FIT - COLON CA SCREENING 1975 FLEX SIG - COLON CA SCREENING 1975 LIPID TESTING 1975 MAMMOGRAM 1975 PAP SMEAR 1975 HIV SCREENING 1990 HEPATITIS C SCREENING 03/20/1993 DTAP/TDAP/TD VACCINES (1 - Tdap) 1994 HEPATITIS B VACCINE (1 of 3 - 19+ 3-dose series) 1994 COVID-19 VACCINE (1 - 2023-2 5 season) 2024 INFLUENZA VACCINE (#1) 2024 DEPRESSION SCREENING 08/28/2024 ZOSTER VACCINE (1 of 2) 2025 HIB VACCINE Aged Out No longer eligi ble based on patient's age to complete this topic HPV VACCINE Aged Out No longer eligi ble based on patient's age to complete this topic MENINGOCOCCAL (Group B) VACCINE Aged Out No longer eligible based on patient's age to complete this topic MENINGOCOCCAL VACCINE Aged Out No socorro nitish eligible based on patient's age to complete this topic PNEUMOCOCCAL VACCINE Aged Out No long er eligible based on patient's age to complete this topic Care Teams Dean Of Instruction Relationship Specialty Start Date End Date Vickey Spicer MD [address] [place] [address] PCP - General 02/12/19
--- OUTSIDE RECORDS SUMMARY | 2024-11-05 00:25 | XMS_ITS | Referral Summary ---
Author Organization [facility] Address [address] [place] [address] Care Team Providers Care Audiology Doctor Name Role Phone Vickey Spicer MD Primary Care Provider [phone] Source Comments [facility],non-owned Affiliates and Associated Physician Practices is amultiple site organization consisting of ambulatory clinics and hospital sitesin [place], [place], [place] and [place]. This disclosure is being madepursuant to the Care Everywhere program and may not contain all information available regarding this patient. Last updated 18.[facility] [employer] Social History Tobacco Use Types Packs/Day Years Used Date Smoking Tobacco: Never Assessed Sex and Gender Information Value Date Recorded Sex Assigned at Not on file Gender Identity Not on file Sexual Orientation Not on file Plan of Treatment Not on file Care Teams Audiology Doctor Relationship Specialty Start Date End Date Vickey Spicer MD [address] [place] [address] PCP - General 02/12/19
[2024-11-05 00:26] VITALS: BP 138/94; PULSE 89; RESP 18; TEMP 36.6; O2SAT 97
--- OUTSIDE RECORDS SUMMARY | 2024-11-05 00:50 | XMS_ITS | Referral Summary ---
Author Organization [facility] Address [address] [place] [address] Care Team Providers Care Art Gallery Internship Name Role Phone Vickey Spicer MD Primary Care Provider [phone] Source Comments [facility],non-owned Affiliates and Associated Physician Practices is amultiple site organization consisting of ambulatory clinics and hospital sitesin [place], [place], [place] and [place]. This disclosure is being madepursuant to the Care Everywhere program and may not contain all information available regarding this patient. Last updated 18.[facility] [employer] Social History Tobacco Use Types Packs/Day Years Used Date Smoking Tobacco: Never Assessed Sex and Gender Information Value Date Recorded Sex Assigned at Not on file Gender Identity Not on file Sexual Orientation Not on file Plan of Treatment Not on file Care Teams Art Gallery Internship Relationship Specialty Start Date End Date Vickey Spicer MD [address] [place] [address] PCP - General 02/12/19
--- OUTSIDE RECORDS SUMMARY | 2024-11-05 00:50 | XMS_ITS | Clinical Summary ---
Author Organization [facility] Address [address] [facility], [address] [address] Phone Care Team Providers Care Heel Former Name Role Phone Lukas Solitario MD Primary Care Provider [phone] Allergies Active Allergy Reactions Criticality Noted Date Comments Valproic Acid Itching 08/20/2016 Haloperidol Lactate Other (see Comments) 2015 tense up [place] Other (see Comments) 12/30/2015 act weird Sulfa [...] Patient not taking.Reported on 10/01/2019 nystatin (MYCOSTATIN) [id number] UNIT/GM Cream Apply 2 times daily. 30 [...] Comments Blood Pressure 141/78 10/08/2019 11:39 AM WASHATERIA ATTENDANT Pulse 87 10/08/2019 11:39 AM WASHATERIA ATTENDANT Temperature 36.6 C (97.8 F) 10/08/2019 11:39 AM WASHATERIA ATTENDANT Respiratory Rate 18 02/10/2019 4:55 PM CDT Oxygen Saturation 98% 10/08/2019 11:39 AM WASHATERIA ATTENDANT Inhaled Oxygen Concentration - - Weight [...] PANEL ACUTE (AHP) Routine 09/20/2017 2:45 PM WASHATERIA ATTENDANT Encounter for screening for infections with a predominantly sexual mode of transmission from Last 3 Months or Most Recently Relevant to Health Maintenance Results * HEPATITIS PANEL ACUTE (AHP) (09/20/2017 2:45 PM WASHATERIA ATTENDANT) HEPATITIS A IGM ANTIBODY NON DETECTED NON DETECTED 09/20/2017 10:56 PM WASHATERIA ATTENDANT [facility] Comment: IGM Antibodies to HAV not detected. Does not exclude early acute or recovered HAV infection. HEP B CORE AB (IGM) NON DETECTED NON DETECTED 09/20/2017 10:56 PM WASHATERIA ATTENDANT [facility] Comment: IGM anti-HBC not detected. Does not exclude the possibility of exposure to or infection with HBV. HEPATITIS B SURFACE ANTIGEN NON DETECTED NON DETECTED 09/20/2017 10:56 PM WASHATERIA ATTENDANT [facility] Comment: A nonreactive test result [...] antibody 0.06 <1 S/CO 09/20/2017 10:56 PM WASHATERIA ATTENDANT [facility] Comment: Signal/Cutoff ratio < 0.79 is Nondetected Signal/Cutoff ratio 0.80-0.99 is Grayzone Signal/Cutoff ratio > 0.99 is Detected Supplemental assays are recommended if signal/cutoff ratio is >/=1.00. Signal/cutoff ratio result >/= 5.00 is 97% predictive of positivity for recombinant immunoblot assay (RIBA) and will be reported to the [place] Department of Public Health as required. Blood specimen (specimen) Venipuncture / Unknown 09/20/2017 2:45 PM WASHATERIA ATTENDANT 09/20/2017 4:33 PM WASHATERIA ATTENDANT us Not On File Provider HEMATOLOGY ORDERABLES Final Result [facility] [address] [place] [address], from Last 3 Months or Most Recently Relevant to Health Maintenance Insurance MEDICAID [place] Care Teams Heel Former Relationship Specialty Start Date End Date Lukas Solitario MD [address] [place] [address] PCP - General Pediatrics 10/01/19
--- OUTSIDE RECORDS SUMMARY | 2024-11-05 00:50 | XMS_ITS | Continuity of Care Document ---
Author Organization [facility] Address [address] [place] [address] Phone Care Team Providers Care Web Operations Manager Name Role Phone Slade Hoover MD Unavailable Unavailable Allergies, Adverse Reactions, Alerts Substance Reaction Status Criticality HALOPERIDOL LACTATE Active No Infor mation haloperidol Active No Information lithium Active No Information Sulfa (Sulfonamide Antibiotics) Active No Information Medications Medication Instructions Dosage Effective Dates (start - stop) Status Comments lisinopril 20 mg-hydrochlorothi azide 12.5 mg tablet take 1 tablet by oral route every day 1.00 tablet - Active clonidine HCl 0.2 mg tablet take 1 tablet by oral route 2 times every day 0.2 MG - Active Ativan 0.5 mg tablet take 1 Tablet by oral route every bedtime as needed 0.5 MG - Active PRN for anxiety, avoid ddriving or operate machines Procedures Procedure Date OFFICE/OUTPATIENT VISIT, EST Advance Directives Directive Yes / No Effective Date File Name No Information Encounters Encounter Description Practice Location Reason(s) For Visit Diagnoses Date Provider Providers Copied on Encounter [facility], [address], [place], [id number], [place] tel:[phone] [facility] No Information 6 Kiko June. [address] [place], [id number] , [place]. tel:[phone] Referring Provider: Slade Hoover, [address] [place], [place], [id number]. tel:[phone] OFFICE/OUTPA TIENT VISIT, EST [facility], [address] [place], [place], [id number], [place] tel:[phone] [facility] anxiety1 (chief complaint) HTN1 (chief complaint) ADD (chief complaint) back pain1 (chief complaint) Essential (primary) hypertensionAttenti on deficitGeneralized anxiety disorderLumbago 6 Kiko June. [address], [place], [place], [address] , [place]. tel:[phone] Referring Provider: Slade Hoover, [address], [place], [place], [address]. tel:[phone] Family History Family Member Type Diagnosis Age At Onset Mother Problem (finding) manic deprssive, HTN Father Problem (finding) Diabetes mellitus type 2 Father Problem (finding) Alive and well Brother Problem (finding) Alive and well Brother Problem (finding) Hypertension Payers Payer name Insurance type Covered green party ID Authoriza tion(s) No Information Social History Type Description Quantity Date Captured Comments Sex Female Smoking Status No Information Chief Complaint And Reason For Visit No Information Plan Of Treatment Date Type Action Status No Information History Of Present Illness Encounter Date Complaint History Of Prese nt Illness anxiety1 Pt has chronic a nxiety without depression. Pt takes ativan PRN. Pt denies any suicidal or homicidal thought Pt is fighting for her children custody. Pt denies any crying spells. pt denies any feeling of hopelessless. Pt has long standing history of psychiatry issue. HTN1 Pt takes lisinop ril and clonidine for HTn Her BP is stalbe. Pt denies any chest pain or headache ADD Pt states that s he takes adderall for ADD symptoms. Pt states that she has difficulty with focus and concentration. Pt states that last time she had adderall was back in September 12. back pain1 Pt has chronic l ow back pain Pt states that she fell several years ago and has been having back pain. Pt deneis any loss of bowel or bladder control Instructions Date Instruction Additional Infor mation Prescribed Activity and Exercise Education Related to Dietary Surveillance and Counseling Prescribed Diet Educ ation/Lifestyle Education Regarding Diet Related to Dietary Surveillance and Counseling Assessments Type Assessment Date No Information
--- OUTSIDE RECORDS SUMMARY | 2024-11-05 00:50 | XMS_ITS | Patient Health Summary ---
Author Organization [facility] Address [address] [place] [address] Care Team Providers Care Embroidery Machine Operator Name Role Phone Vickey Spicer MD Primary Care Provider [phone] Note from [facility],non-owned Affiliates and Associated Physician Practices is amultiple site organization consisting of ambulatory clinics and hospital sitesin [place], [place], [place] and [place]. This disclosure is being madepursuant to the Care Everywhere program and may not contain all information available regarding this patient. Last updated 18.[facility] Social History Tobacco Use Types Packs/Day Years Used Date Smoking Tobacco: Never Assessed Sex and Gender Information Value Date Recorded Sex Assigned at Not on file Gender Identity Not on file Sexual Orientation Not on file Procedures * SONOGRAM - COMPLETE(Performed 10/04/2010) Results * SONOGRAM - COMPLETE (10/04/2010 11:18 AM SENIOR TECHNICAL WRITER) Anatomical Region Laterality Modality Other 10/04/2010 11:1 8 AM SENIOR TECHNICAL WRITER Narrative 10/04/2010 1:31 PM SENIOR TECHNICAL WRITER [facility] PHONE: FAX: Pat. Name: SYLVESTER TAMAYO Pat. No: [id number] Study Date: 10/04/2010 11:18am , Age: 07 1975, 35 LMP: Unknown GA by US: 18.5 weeks GA Selected: 18.7 weeks (From Known E) KHURRAM: 03/02/2011 Referring MD: RUDY AKBAR MD Commercial Management Accountant: Ann Mar RDMS Hist/Ind: AMA MEASUREMENTS & [...] <Electronic Signature> 10/04/2010 01:30pm Rudy Akbar MD [facility] ORDERABLES Care Teams Embroidery Machine Operator Relationship Specialty Start Date End Date Vickey Spicer MD [address] [place] [address] PCP - General 02/12/19
--- OUTSIDE RECORDS SUMMARY | 2024-11-05 00:50 | XMS_ITS | Clinical Summary ---
Author Organization [facility] Address [address] [place] [address] Care Team Providers Care Insurance Marketing Specialist Name Role Phone Vickey Spicer MD Primary Care Provider [phone] Source Comments [facility],non-owned Affiliates and Associated Physician Practices is amultiple site organization consisting of ambulatory clinics and hospital sitesin [place], [place], [place] and [place]. This disclosure is being madepursuant to the Care Everywhere program and may not contain all information available regarding this patient. Last updated 18.[facility] Social History Tobacco Use Types Packs/Day Years [...] age to complete this topic Care Teams Insurance Marketing Specialist Relationship Specialty Start Date End Date Vickey Spicer MD [address] [place] [address] PCP - General 02/12/19
--- OUTSIDE RECORDS SUMMARY | 2024-11-05 00:50 | XMS_ITS | Encounter Summary ---
Author Organization [facility] Address [address] [place] [address] Phone Care Team Providers Care Certified Welder Name Role Phone Lukas Solitario MD Primary Care Provider [phone] Reason for Visit * Reason Onset Date Comments Pain Management 11/29/2019 Encounter Details Date Type Department Care Team (Late st Contact Info) Description 11/29/2019 Telephone [facility] [address] [place] [address] Natasha Irizarry, FASHION CONSULTANT, INORGANIC CHEMISTRY PROFESSOR [address] [place] [address] Pain Management Social History Tobacco [...] it up because her insurance changed to [place] andit was covered so she picked up [...] on filedocumented in this encounter Care Teams Certified Welder Relationship Specialty Start Date End Date Lukas Solitario MD [address] [place] [address] PCP - General Pediatrics 10/01/19 documented as of this encounter
--- OUTSIDE RECORDS SUMMARY | 2024-11-05 00:50 | XMS_ITS | Encounter Summary ---
Author Organization [facility] Address [address] [facility] [place] [address] Phone Care Team Providers Care Ski Base Trimmer Name Role Phone Lukas Solitario MD Primary Care Provider [phone] Reason for Visit * Reason Comments Medication Refill Encounter Details Date Type Department Care Team (Late st Contact Info) Description 01/16/2020 Refill [facility] [address] [place] [address] Natasha Irizarry, NEIGHBORHOOD COORDINATOR, COMMUNITY SERVICE OFFICER [address] [place] [address] Medication Refill Social History Tobacco [...] sciatica documented in this encounter Care Teams Ski Base Trimmer Relationship Specialty Start Date End Date Lukas Solitario MD [address] [place] [address] PCP - General Pediatrics 10/01/19 documented as of this encounter
--- NOTE | 2024-11-05 00:58 | PC.NURSE ---
Pt ambulated down hallway and wanting to know how much longer it will be before she is seen by Dr. Pt told Dr will be in to see her as soon as he can. Pt ambulated steadily back to room.
--- NOTE | 2024-11-05 01:07 | PC.NURSE ---
Pt collette from ER Rm 3 stating she didn't want to wait to be seen anymore and she would go see her FMD in morning.
== END 2024-11-05 01:08 | disposition left against medical advice (07) ==
PROVIDERS: Emergency Provider Emergency Medicine; PCP Family Medicine
DX: M25.552 Pain in left hip (principal)
CPT/HCPCS: 99199

== ENCOUNTER 2025-02-03 13:22 | Outpatient (CLI) | payer OTHER, SELFPAY ==
--- NOTE | ~2025-02-03 | MM_ITS ---
EXAMINATION: MM screening kadeem BI w [facility] HISTORY: Screening TECHNIQUE: Craniocaudal and mediolateral oblique 3-D tomosynthesis images were obtained and synthetic 2-D images were generated. CAD analysis was submitted and interpreted. COMPARISON: Comparison to multiple prior studies sequentially, with oldest reviewed study dated 08/2023. BREAST PARENCHYMAL COMPOSITION: Not dense: There are scattered areas of fibroglandular density. FINDINGS: There is no evidence of suspicious mass, calcification, or architectural distortion to sugg est malignancy in either breast. There has been no suspicious interval change. IMPRESSION: 1. No mammographic evidence of malignancy. 2. Recommend routine screening mammography in one year. BI-RADS Category 1: Negative Reviewed, dictated and finalized at location B.
--- OUTSIDE RECORDS SUMMARY | 2025-02-03 14:37 | XMS_ITS | Clinical Summary ---
Author Organization [facility] Address [address] [place] [address] Care Team Providers Care Die Cleaner Name Role Phone Vickey Spicer MD Primary Care Provider [phone] Source Comments [facility],non-owned Affiliates and Associated Physician Practices is amultiple site organization consisting of ambulatory clinics and hospital sitesin [place], [place], [place] and [place]. This disclosure is being madepursuant to the Care Everywhere program and may not contain all information available regarding this patient. Last updated 18.[facility] Social History Tobacco Use Types Packs/Day Years Used Date Smoking Tobacco: Never Assessed Comments Unknown Sex and Gender Information Value Date Recorded Sex Assigned at Not on file Legal Sex Female 6:14 AM METAL SPRAYER Gender Identity Not on file Sexual Orientation [...] SCREENING 1975 LIPID TESTING 1975 MAMMOGRAM 1975 HIV SCREENING 1990 HEPATITIS C SCREENING 03/20/1993 DTAP/TDAP/TD VACCINES (1 - Tdap) 1994 HEPATITIS B VACCINE (1 of 3 - 19+ 3-dose series) 1994 COVID-19 VACCINE ( - 2023-2 5 season) 2024 DEPRESSION SCREENING 08/28/2024 ZOSTER VACCINE (1 of 2) 2025 INFLUENZA VACCINE (Season Ended) 2025 HIB VACCINE Aged Out No longer eligi ble based on patient's age to complete this topic HPV VACCINE Aged Out No longer eligi ble based on patient's age to complete this topic MENINGOCOCCAL (Group B) VACC INE SHARED DECISION-MAKING Aged Out No longer eligibl e based on patient's age to complete this topic MENINGOCOCCAL GROUPS A/C/Y/W VACCINE Aged Out No longer eligible b ased on patient's age to complete this topic Insurance [facility] MEDICAID - OUT OF [facility] Care Teams Die Cleaner Relationship Specialty Start Date End Date Vickey Spicer MD [address] [place] [address] PCP - General 02/12/19
--- OUTSIDE RECORDS SUMMARY | 2025-02-03 14:38 | XMS_ITS | Continuity of Care Document ---
Author Organization [facility] Address [address] [facility] [place] [address] Phone Care Team Providers Care Teletypesetter Operator Name Role Phone Slade Hoover MD Unavailable [...] Diagnoses Date Provider Providers Copied on Encounter [facility], [address], [place], [id number], [place] tel:[phone] [facility] No Information [address] K[address] June. [address] [facility] [place], [place], [id number] , [place]. tel:[phone] Referring Provider: Slade Hoover, [address] [place], [place], [id number]. tel:[phone] OFFICE/OUTPA TIENT VISIT, EST [facility], [address], [place], [place], [id number], [place] tel:[phone] [facility] Medicine anxiety1 (chief complaint) HTN1 (chief complaint) ADD (chief complaint) back pain1 (chief complaint) Essential (primary) hypertensionAttenti on deficitGeneralized anxiety disorderLumbago 6 K[address] June. [address], [place], [place], [id number] , [place]. tel:[phone] Referring Provider: Slade Hoover, [address], [place], [place], [id number]. tel:[phone] Family History Family Member Type Diagnosis Age At Onset Mother Problem (finding) manic deprssive, HTN Father Problem (finding) Diabetes mellitus type 2 Father Problem (finding) Alive and well Brother Problem (finding) Alive and well Brother Problem (finding) Hypertension Payers Payer name Insurance type Covered republican ID Authoriza tion(s) No Information Social History [...]
--- OUTSIDE RECORDS SUMMARY | 2025-02-03 14:38 | XMS_ITS | Clinical Summary ---
Author Organization [facility] Address [address] [facility], [address] [address] Phone Care Team Providers Care Digital Content Marketing Manager Name Role Phone Lukas Solitario MD Primary Care Provider [phone] Allergies Active Allergy Reactions Criticality Noted Date Comments Valproic Acid Itching 08/20/2016 Haloperidol Lactate Other (see Comments) 2015 tense up [place] Other (see Comments) 12/30/2015 act weird Sulfa [...] Patient not taking.Reported on 10/01/2019 nystatin (MYCOSTATIN) [id number] UNIT/GM Cream Apply 2 times daily. 30 [...] Comments Blood Pressure 141/78 10/08/2019 11:39 AM OUTREACH ASSISTANT Pulse 87 10/08/2019 11:39 AM OUTREACH ASSISTANT Temperature 36.6 C (97.8 F) 10/08/2019 11:39 AM OUTREACH ASSISTANT Respiratory Rate 18 02/10/2019 4:55 PM CDT Oxygen Saturation 98% 10/08/2019 11:39 AM OUTREACH ASSISTANT Inhaled Oxygen Concentration - - Weight 149.7 kg (330 lb) 02/10/2019 4:13 PM CDT Height 165.1 cm (5' 5) 02/10/2019 4:13 PM CDT Body Mass Index 54.91 02/10/2019 4:13 PM CDT Plan of Treatment Health Maintenance Due Date Last Done Comments Hepatitis B Immunization (1 of 3 - 19+ 3-dose series) 1994 Cologuard 2020 Colonoscopy 2020 Colorectal Cancer Screening 2020 Immunochemical Fecal Occult Blood 2020 SARS-COV-2 Immunization (3 - season) 2024 12/06/2020, 11/12/2020 Influenza Immunization (Season Ended) 2025 05/27/2016 Respiratory Syncytial Virus (RSV) Immunization (Adult) (1 - 1-dose 75+ series) 2050 Hepatitis C Virus (HCV) Screening Completed 09/20/2017, 09/29/2016, 01/26/2016, Additional history exists DTaP/Tdap/Td Immunization Discontinued 01/29/2018, 08/2010 Human Papillomavirus (HPV) Immunization Aged Out No longer eligible based on patient's age to complete this topic Meningococcal Immunization (ACWY) Aged Out No longer [...] PANEL ACUTE (AHP) Routine 09/20/2017 2:45 PM OUTREACH ASSISTANT Encounter for screening for infections with a predominantly sexual mode of transmission from Last 3 Months or Most Recently Relevant to Health Maintenance Results * HEPATITIS PANEL ACUTE (AHP) (09/20/2017 2:45 PM OUTREACH ASSISTANT) HEPATITIS A IGM ANTIBODY NON DETECTED NON DETECTED 09/20/2017 10:56 PM OUTREACH ASSISTANT [facility] Comment: IGM Antibodies to HAV not detected. Does not exclude early acute or recovered HAV infection. HEP B CORE AB (IGM) NON DETECTED NON DETECTED 09/20/2017 10:56 PM OUTREACH ASSISTANT [facility] Comment: IGM anti-HBC not detected. Does not exclude the possibility of exposure to or infection with HBV. HEPATITIS B SURFACE ANTIGEN NON DETECTED NON DETECTED 09/20/2017 10:56 PM OUTREACH ASSISTANT [facility] Comment: A nonreactive test result does not [...] antibody 0.06 <1 S/CO 09/20/2017 10:56 PM OUTREACH ASSISTANT [facility] Comment: Signal/Cutoff ratio < 0.79 is Nondetected Signal/Cutoff ratio 0.80-0.99 is Grayzone Signal/Cutoff ratio > 0.99 is Detected Supplemental assays are recommended if signal/cutoff ratio is >/=1.00. Signal/cutoff ratio result >/= 5.00 is 97% predictive of positivity for recombinant immunoblot assay (RIBA) and will be reported to the [place] Department of Public Health as required. Blood specimen (specimen) Venipuncture / Unknown 09/20/2017 2:45 PM OUTREACH ASSISTANT 09/20/2017 4:33 PM OUTREACH ASSISTANT us Not On File Provider HEMATOLOGY ORDERABLES Final Result [facility] [address] [place] [address], from Last 3 Months or Most Recently Relevant to Health Maintenance Insurance MEDICAID [place] Care Teams Digital Content Marketing Manager Relationship Specialty Start Date End Date Lukas Solitario MD [address] [place] [address] PCP - General Pediatrics 10/01/19
== END 2025-02-03 13:23 | disposition home or self-care (01) ==
LOC: CHSIMG 13:23
PROVIDERS: PCP Family Medicine; Visit Provider Obstetrics & Gynecology
DX: Z12.31 Encounter for screening mammogram for malignant neoplasm of breast (principal)
CPT/HCPCS: 77063; 77067